=== PATIENT | female | born 1950 | race Caucasian/White ===

== ENCOUNTER 2023-09-08 17:08 | Inpatient (IN) ==
[2023-09-08] MEDS ORDERED: ALBUTEROL 0.083% NEB NEB PRN (17:26)
[2023-09-08 17:46] LABS: ABG O2 HGB 92.7 % (95-100); BEecf 21.3 (-2.0-3.0); COHb 2.6 (0.5-1.5); HCO3 47.7 (21-28); TCO2 50.7 (19-24); sO2 94.3 % (94-98); tHb 7.9 g/dl (11.7-17.4)
[2023-09-08] MEDS: ZOFRAN 4 MG/2 ML IVP PRN (18:34)
[2023-09-08] MEDS: LASIX IVP STA (18:34)
[2023-09-08 18:43] VITALS: BMI 49.8
[2023-09-08] MEDS: DUONEB NEB SCH (18:54)
[2023-09-08] MEDS: MERREM 1 GM/50 ML NACL 1 GM/50 ML BAG IV SCH (20:35)
[2023-09-08 20:45] LABS: ABG O2 HGB 82.3 % (95-100); ABG PH 7.43 (7.35-7.45); BEecf 21.5 (-2.0-3.0); COHb 2.9 (0.5-1.5); HCO3 45.8 (21-28); MetHb 0.5 (0-1.5); TCO2 47.9 (19-24); sO2 85.4 % (94-98); tHb 7.8 g/dl (11.7-17.4)
[2023-09-08] MEDS: FLORASTOR PO SCH (21:01)
[2023-09-08] MEDS: ZYVOX PO SCH (21:01)
--- NOTE | 2023-09-08 21:13 | PCM ---
Date of Service Date Seen by Provider: 09/08/23 Admit Day/Time Admission Date: 09/08/23 Reason for Admission Chief Complaint: CHF W EXACERBATION,ACUTE HYPOXIC RESP FAILURE Hospital Provider Hospital Provider: TYSON BRITO, [facility] [place] Primary Care Physician Primary Care Physician: JOSUE ORTA History of Present Illness History of Present Illness: 73 yo female admitted to swingbed program on 08/31/23 following a left TKA revision completed by Dr. Mock at [facility] on 08/25. Today, patient was complaining of significant pain on ambulation to the left leg. Area at top of incision draining yellow/bloody tinged fluid, red area to the lateral side in the middle of the incision, and left lower leg has continued to become more erythematous. CT scan obtained of area and showed seroma vs hematoma. Patient also became dizzy/lightheaded upon ambulating with nursing staff to [facility] and fell sitting down onto a trashcan. No injuries sustained at that time, but patient was found to be somewhat confused and oxygen sat was in the 80s. Once sitting, O2 sat only recovered to 85-86%. O2 was increased from 4L to 6L within minimal improvement to 90%. Patient was lethargic at this time. ABG was obtained and showed PCO2 of 97. Patient was then placed on BiPAP. Patient had similar episode at [facility] and refused to wear BIPAP/CPAP and refused sleep study. Chest x-ray also obtained and revealed pleural effusions and vascular congestion present. Patient has not had a fever or other symptoms. Spoke extensively with Dr. Johnson Mock, orthopedic that performed her surgery, regarding the patient. Recommended specific wound care as discussed in plan below and recommended Merrem 1G to cover cellulitis and any other gram positive organisms that may be causing the issue with the incision site. Reported that drainage is likely due to fat necrosis and he will come see patient to place jemima to the area that is draining on Wednesday if needed. Hold PT/OT until further notice at this time. [facility] Medical History Lipoma of skin of abdomen D17.1 - Benign lipomatous neoplasm of skin and subcutaneous tissue of trunk (ICD-10) Lipoma of back D17.1 - Benign lipomatous neoplasm of skin and subcutaneous tissue of trunk (ICD-10) Sleep apnea G47.30 - Sleep apnea, unspecified (ICD-10) Hypertension I10 - Essential (primary) hypertension (ICD-10) History of home oxygen therapy Z99.81 - Dependence on supplemental oxygen (ICD-10) Diabetes mellitus E11.9 - Type 2 diabetes mellitus without complications (ICD-10) CHF (congestive heart failure) I50.9 - Heart failure, unspecified (ICD-10) Asthma J45.909 - Unspecified asthma, uncomplicated (ICD-10) Surgical History S/P removal of left ovary Z90.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, unilateral (ICD-10) Joint replaced explant and spacer d/t infection on 03/26/2021 Z96.60 - Presence of unspecified orthopedic joint implant (ICD-10) History of carpal tunnel release Z98.890 - Other specified postprocedural states (ICD-10) Social History Smoking and tobacco status: Former smoker Alcohol intake: never Allergies Allergies Allergy/AdvReac Type Severity Reaction Status Date / Time clindamycin AdvReac Verified 08/31/23 17:04 hydrocodone AdvReac Verified 08/31/23 17:04 Penicillins AdvReac Verified 08/31/23 17:04 Tetanus Toxoid AdvReac Uncoded 08/31/23 17:04 Vancomycin AdvReac Uncoded 08/31/23 17:04 Current Medications Home Medications amiodarone 200 mg tablet 200 mg PO DAILY 08/31/23 [History Confirmed 09/08/23 Last Taken 09/08/23] ascorbic acid (vitamin C) 500 mg tablet,extended release (C Complex) 500 mg PO DAILY 08/31/23 [History Confirmed 09/08/23 Last Taken 09/08/23] bumetanide 1 mg tablet 1 mg PO DAILY 08/31/23 [History Confirmed 09/08/23 Last Taken 09/08/23] cholecalciferol (vitamin D3) 125 mcg (5,000 unit) tablet (Vitamin D3) 125 mcg PO DAILY 08/31/23 [History Confirmed 09/08/23 Last Taken 09/08/23] fexofenadine 180 mg tablet (Arlette Allergy) 180 mg PO DAILY 08/31/23 [History Confirmed 09/08/23 Last Taken 09/08/23] gabapentin 300 mg capsule 300 mg PO TID 08/31/23 [History Confirmed 09/08/23 Last Taken 09/08/23] glimepiride 1 mg tablet 1 mg PO QAM 08/31/23 [History Confirmed 09/08/23 Last Taken 09/08/23] linezolid 600 mg tablet (Zyvox) 600 mg PO BID 08/31/23 [History Confirmed 09/08/23 Last Taken 09/08/23] lovastatin 20 mg tablet 20 mg PO QPM 08/31/23 [History Confirmed 09/08/23 Last Taken 09/08/23] magnesium oxide 400 mg PO BID 08/31/23 [History Confirmed 09/08/23 Last Taken 09/08/23] ondansetron 8 mg disintegrating tablet 4 mg PO Q8H PRN nausea and vomiting 08/31/23 [History Confirmed 09/08/23 Last Taken 09/08/23] oxybutynin chloride 5 mg tablet 5 mg PO TID 08/31/23 [History Confirmed 09/08/23 Last Taken 09/08/23] oxycodone 10 mg tablet 10 mg PO Q4H PRN pain 08/31/23 [History Confirmed 09/08/23 Last Taken 09/08/23] pantoprazole 40 mg tablet,delayed release 40 mg PO QAM 08/31/23 [History Confirmed 09/08/23 Last Taken 09/08/23] rivaroxaban 10 mg tablet (Xarelto) 10 mg PO DAILY 08/31/23 [History Confirmed 09/08/23 Last Taken 09/08/23] triamcinolone acetonide 55 mcg nasal spray aerosol (Nasacort) 2 spray intranasal DAILY 08/31/23 [History Confirmed 09/08/23 Last Taken 09/08/23] Home Acetaminophen (Acetaminophen 325 Mg Tablet) 650 mg PO Q4H PRN PRN Reason: Mild Pain Albuterol Sulfate (Albuterol Sulfate 0.083% Vial.Neb) 2.5 mg NEB RTQ4H PRN PRN Reason: Wheezing Albuterol/Ipratropium (Ipratropium/Albuterol Vial.Neb) 3 ml NEB RTQ4H MANI Last Admin: 09/09/23 09:58 Dose: 3 ml Amiodarone HCl (Amiodarone Hcl 200 Mg Tablet) 200 mg PO DAILY [facility] Last Admin: 09/09/23 08:41 Dose: 200 mg Apixaban (Apixaban 5 Mg Tab) 5 mg PO BID [facility] Last Admin: 09/09/23 09:48 Dose: 5 mg Ascorbic Acid (Ascorbic Acid 500 Mg Tablet) 500 mg PO DAILY [facility] Last Admin: 09/09/23 08:43 Dose: 500 mg Cholecalciferol (Cholecalciferol (Vitamin D3) 1,000 Unit (25 Mcg) Tablet) 5,000 unit PO DAILY [facility] Last Admin: 09/09/23 08:53 Dose: 5,000 unit Furosemide (Furosemide Inj 40 Mg/4 Ml Vial) 40 mg IVP Q8H [facility] Last Admin: 09/09/23 08:55 Dose: 40 mg Gabapentin (Gabapentin 300 Mg Capsule) 300 mg PO TID [facility] Last Admin: 09/09/23 08:44 Dose: 300 mg Meropenem/Sodium Chloride (Merrem 1 Gm/50 Ml Nacl) 1 gm in 50 mls @ 100 mls/hr IV Q8HR [facility] Stop: 09/11/23 18:59 Insulin Human Regular (Insulin Regular, Human 100 Unit/Ml (10ml) Vial) 0 unit SUBCUT PRN PRN; Protocol PRN Reason: Hyperglycemia Linezolid (Linezolid 600 Mg Tablet) 600 mg PO BID [facility] Stop: 09/11/23 20:59 Last Admin: 09/09/23 08:40 Dose: 600 mg Loratadine (Loratadine 10 Mg Tablet) 10 mg PO DAILY [facility] Last Admin: 09/09/23 08:45 Dose: Not Given Lorazepam (Lorazepam Inj 2 Mg/Ml Vial) 1 mg IVP Q4H PRN PRN Reason: Agitation Last Admin: 09/08/23 22:00 Dose: 1 mg Lovastatin (Lovastatin 20 Mg Tablet) 20 mg PO QPM [facility] Magnesium Oxide (Magnesium Oxide 400 Mg Tablet) 400 mg PO BID [facility] Last Admin: 09/09/23 08:40 Dose: 400 mg Ondansetron HCl (Ondansetron Hcl/Pf 4 Mg/2 Ml Sdv) 4 mg IVP Q6H PRN PRN Reason: Nausea / Vomiting Last Admin: 09/08/23 18:34 Dose: 4 mg Oxybutynin Chloride (Oxybutynin Chloride 5 Mg Tablet) 5 mg PO TID [facility] Last Admin: 09/09/23 08:43 Dose: 5 mg Oxycodone HCl (Oxycodone Hcl 5 Mg Tablet) 10 mg PO Q4H PRN PRN Reason: Pain Last Admin: 09/09/23 08:51 Dose: 10 mg Pantoprazole Sodium (Pantoprazole Sodium 40 Mg Tablet.Dr) 40 mg PO QAM [facility] Last Admin: 09/09/23 08:45 Dose: 40 mg Saccharomyces Boulardii (Saccharomyces Boulardii 250 Mg Capsule) 250 mg PO BID [facility] Last Admin: 09/09/23 08:42 Dose: 250 mg Sodium Chloride (0.9% Sodium Chloride 10 Ml Disp.Syrin) 1 syr IVF Q8HR [facility] Last Admin: 09/09/23 04:58 Dose: 1 syr Discontinued Medications Furosemide (Furosemide Inj 40 Mg/4 Ml Vial) 40 mg IVP ONCE STA Stop: 09/08/23 17:27 Last Admin: 09/08/23 18:34 Dose: 40 mg Meropenem/Sodium Chloride (Merrem 1 Gm/50 Ml Nacl) 1 gm in 50 mls @ 100 mls/hr IV Q8H [facility] Stop: 09/11/23 18:59 Last Admin: 09/09/23 04:58 Dose: 100 mls/hr Non-Formulary Medication (Fexofenadine [Arlette Allergy]) 180 mg PO DAILY [facility] Rivaroxaban (Rivaroxaban 10 Mg Tablet) 10 mg PO DAILY [facility] Opioid Naive vs. Tolerant Does Patient Take Opioids?: Yes Is Patient Opioid Naive?: No What is Opioid Naive?: *Opioid Naive implies the patient is not already taking opioids or not chronically receiving opioids on a daily basis. *PRN dosing is not "usually" associated with tolerance. *Patients are at higher risk of over-sedation and aspiration. Is Patient Opioid Tolerant?: No What is Opioid Tolerant?: *Opioid Tolerance implies less than the expected response to an opioid. *Acquired tolerance is defined by the patient taking 60mg of oral morphine daily (or equianalgesic dose of another opioid) for 1 week or more. *Often associated with chronic pain. *May take more than usual dose to achieve desired pain control. Review of Systems Constitutional: Reports No symptoms Head: Reports Normocephalic Eyes: Reports No symptoms Ears: Reports No symptoms Nose: Reports No symptoms Mouth: Reports No symptoms Throat: Reports No symptoms Cardiovascular: Reports Edema Respiratory: Reports Shortness of air Gastrointestinal: Reports Nausea Genitourinary: Reports No Symptoms Dermatologic: Reports Skin Changes (redness to left lower leg ) Endocrine: Reports No symptoms Hematology: Reports No symptoms Immunology: Reports No symptoms Neurological: Reports No symptoms Psychiatric: Reports No symptoms Physical examination Most Recent Vital Signs: Most Recent Vital Signs Temperature 98 F 09/08/23 18:00 Temperature Source Temporal Artery Scan 09/08/23 18:00 Pulse Rate 78 09/08/23 18:00 Respiratory Rate 17 09/08/23 18:00 Blood Pressure 130/89 09/08/23 18:00 Blood Pressure Mean 102 09/08/23 18:00 Blood Pressure Left Arm 114/56 09/08/23 17:15 Blood Pressure Location Left Arm 09/08/23 18:00 Blood Pressure Position Sitting 09/08/23 18:00 O2 Sat by Pulse Oximetry 98 09/08/23 20:54 Oxygen Delivery Method Bi-pap 09/08/23 18:46 Fraction of Inspired Oxygen (FIO2) 32 09/08/23 20:54 Height 5 ft 7 in 09/08/23 17:15 Weight 318 lb 09/08/23 17:15 Appearance: Positive Obese Skin: Positive Warm, Erythema (L lower extremity) and Other (Vertical incision to L knee, erythema and swelling mediolateral to site, drainage present superior to erythematous area that is serosanguineous) HEENT: Positive Normocephalic and PERRLA Neck: Positive Supple and Midline Trachea Chest/Lungs: Positive Symmetrical With Equal Breath Sounds and Other (crackles to bilateral lung bases) Heart: Positive RRR and Pulses Normal GI/: Positive Soft, Nontender, Bowel Sounds Normal and No Distention Musculoskeletal: Positive Not Examined Extremities: Positive Edema (+4 pitting edema to LLE and +2-3 pitting edema to RLE), Intact Peripheral Pulses and Stable Joints Without Laxity Neurological: Positive Sensation Intact, Motor intact, Reflexes Intact, Disorinted and Other (lethargic) Labs This Visit Labs This Visit: Labs This Visit 09/08/23 09/08/23 17:36 20:30 Puncture Site [employer] Excess 21.3 H 21.5 H O2 Saturation 94.3 85.4 L ABG pH 7.30 L 7.43 ABG pCO2 97.0 H 69.0 H ABG pO2 79.0 L 49.0 L* ABG HCO3 47.7 H 45.8 H ABG Total CO2 50.7 H 47.9 H Luisito Test Pos Pos Hemoglobin 1.0 0.5 Oxyhemoglobin 92.7 L 82.3 L Carboxyhemoglobin 2.6 H 2.9 H Total Hemoglobin 7.9 L 7.8 L O2 Delivery Device Cannula Bipap Oxygen Liter Flow 4.50 FiO2 % 28.0 Imaging Imaging: EXAM: CHEST RADIOGRAPH TECHNIQUE: Single frontal chest radiograph. HISTORY: Shortness of breath. COMPARISON: 08/27/2023 FINDINGS: No pulmonary infiltrate is identified. Trace left pleural effusion. No visible pneumothorax. Stable cardiomegaly with interval improvement in the pulmonary venous congestion. Equivocal interstitial edema. No acute displaced rib fractures are identified. IMPRESSION: 1. Cardiomegaly, pulmonary venous congestion, and trace left pleural effusion with equivocal interstitial edema. Review Statement Review Statement: I have independently reviewed and interpreted the labs/EKGs/imaging that were ordered by the ER provider. I have reviewed all outside records that are available currently in our EMR including imaging/notes/labs from previous visits. Plan Plan: 1. Acute Hypercapnic Respiratory Failure in setting of NAVEED and CHF exacerbation - patient refused cpap/sleep study at [facility], will discuss risks/benefits with patient once medically stable, serial ABGs, wean off BIPAP as tolerated, nebs 2. Acute Hypercapnic Encephalopathy - plan as above, avoid any additional neurologically altering agents if able 3. CHF Exacerbation - unknown type, last echo done 09/2021 with EF of 66%, follows with [facility]; lasix 40 mg Q8H, I&O, daily weight, 1800 mL fluid restriction 4. Cellulitis to LLE - treating with Merrem 1G Q8H, on zyvox PO for left knee revision - continue 5. Post-op anemia - 7.5 currently, VSS, transfuse when <7 6. 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 Mock on 08/25. Following with Dr. Li for ID. Initially on zyvox, transitioned to doxy per Dr. Li. Cellulitis and concerning areas present after switch. Back on zyvox until follow-up with [facility]. wound care as follows per Dr. Johnson Mock: alcohol and betadine to draining area TID with 4x4 gauze with adherent dressing, if area still draining Dr. Mock will staple area on Wednesday. oxycodone for pain 7. Weakness and debility secondary to left TKA revision - holding PT/OT at this time due to above 8. Diabetes Mellitus, type 2 - accuchecks qid with ssi, holding oral medications, ADA diet 9. PAF - continue home medications DVT Prophylaxis: Eliquis Time Spent: Greater than 80 minutes spent with patient, 50% of the time spent with this patient was devoted to counseling and coordination of care. [facility] minutes spent discussing advance care planning. Disposition: Admit to: Med/Surg Inpatient Discussed Plan of Care with Dr. Ysabel Mock. Medications Medication Orders: Medications Ordered Category Date Time Status 0.9 % Sodium Chloride [Saline Flush] Meds 09/08/23 21:00 Ordered 1 syr IVF Q8HR Acetaminophen [Tylenol] Meds 09/08/23 17:39 Active 650 mg PO Q4H PRN Albuterol Sulfate 0.083% Neb [Albuterol 0.083% Neb] Meds 09/08/23 17:26 Active 2.5 mg NEB RTQ4H PRN Amiodarone HCl [Cordarone] Meds 09/09/23 09:00 Ordered 200 mg PO DAILY Cholecalciferol (Vitamin D3) [Vitamin D] Meds 09/09/23 09:00 Ordered 125 mcg PO DAILY Furosemide [Lasix] Meds 09/09/23 01:30 Active 40 mg IVP Q8H Gabapentin [Neurontin] Meds 09/09/23 09:00 Ordered 300 mg PO TID Insulin Regular, Human [Humulin R] Meds 09/08/23 17:41 Active See Protocol SUBCUT PRN PRN Ipratropium/Albuterol Neb [Duoneb] Meds 09/08/23 18:00 Active 3 ml NEB RTQ4H Linezolid [Zyvox] Meds 09/08/23 21:00 Active 600 mg PO BID Lorazepam [Ativan] Meds 09/08/23 18:31 Active 1 mg IVP Q4H PRN Lovastatin [Mevacor] Meds 09/09/23 17:00 Ordered 20 mg PO QPM Meropenem 1Gm/NaCl Premix [Merrem 1 gm/50 ml NaCl] Meds 09/08/23 19:00 Active 1 gm in 50 ml IV Q8H Ondansetron HCl/Pf [Zofran 4 mg/2 ml] Meds 09/08/23 17:55 Active 4 mg IVP Q6H PRN Oxybutynin Chloride [Ditropan] Meds 09/09/23 09:00 Ordered 5 mg PO TID Oxycodone HCl [Oxycodone] Meds 09/08/23 21:11 Ordered 10 mg PO Q4H PRN Pantoprazole Sodium [Protonix] Meds 09/09/23 09:00 Ordered 40 mg PO QAM Rivaroxaban [Xarelto] Meds 09/09/23 09:00 Ordered 10 mg PO DAILY Saccharomyces Boulardii [Florastor] Meds 09/08/23 21:00 Active 250 mg PO BID ascorbic acid (vitamin C) [C Complex] Meds 09/09/23 09:00 Ordered 500 mg PO DAILY fexofenadine [Arlette Allergy] Meds 09/09/23 09:00 Ordered 180 mg PO DAILY magnesium oxide Meds 09/09/23 09:00 Ordered 400 mg PO BID
[2023-09-08] MEDS: ATIVAN IVP PRN (22:00)
[2023-09-09] MEDS: LASIX IVP SCH (01:39)
[2023-09-09] MEDS: OXYCODONE PO PRN (01:39)
[2023-09-09 05:41] LABS: BASOPHILS % (AUTO) 0.5 % (0.0-3.0); EOSINOPHILS # (AUTO) 0.4 K/ul (0.0-0.7); EOSINOPHILS % (AUTO) 5.2 % (0.0-7.0); HEMATOCRIT 25.1 % (37.0-47.0); HEMOGLOBIN 6.9 g/dl (12.0-16.0); IMMATURE GRANULOCYTE % (AUTO) 0.5 % (0.0-5.0); LYMPHOCYTES # (AUTO) 1.3 K/uL (0.60-3.4); LYMPHOCYTES % (AUTO) 15.7 (10.0-50.0); MEAN CORPUSCULAR HEMOGLOBIN 23.2 pg (27.0-31.0); MEAN CORPUSCULAR HGB CONC 27.5 (31.8-35.4); MEAN CORPUSCULAR VOLUME 84.2 fl (81.0-99.0); MONOCYTES # (AUTO) 1.2 K/uL (0.4-2.0); MONOCYTES % (AUTO) 14.7 (0-10); NEUTROPHILS # (AUTO) 5.3 K/ul (2.0-6.9); NEUTROPHILS % (AUTO) 63.4 % (42.2-75.2); PLATELET COUNT 181 10^3/uL (140-440); RDW COEFFICIENT OF VARIATION 22.2 % (11.6-14.8); RED BLOOD COUNT 2.98 10^6/ul (4.20-5.40); WHITE BLOOD COUNT 8.39 K/ul (4.6-10.2)
[2023-09-09 05:57] LABS: ALANINE AMINOTRANSFERASE 18.6 U/L (0-35); ALBUMIN 3.04 g/dL (3.5-5.0); ALKALINE PHOSPHATASE 81.2 U/L (53-141); ASPARTATE AMINO TRANSFERASE 37.3 U/L (14-36); BILIRUBIN,TOTAL 0.69 mg/dL (0.2-1.3); BLOOD UREA NITROGEN 7.7 mg/dL (7-17); CALCIUM 8.75 mg/dL (8.4-10.2); CHLORIDE 91.8 mmol/L (98-107); CREATININE 0.83 mg/dL (0.60-1.30); GLUCOSE 60.9 mg/dL (74-106); POTASSIUM 3.46 mmol/L (3.5-5.1); SODIUM 133.8 mmol/L (134.5-145); TOTAL PROTEIN 5.76 g/dL (6.3-8.2)
[2023-09-09 06:03] LABS: CARBON DIOXIDE 37.7 mmol/L (22-30.0)
[2023-09-09 06:05] LABS: ANISOCYTOSIS 2+ (NOT PRESENT); HYPOCHROMASIA 2+ (NOT PRESENT); MICROCYTOSIS 1+ (NOT PRESENT)
[2023-09-09 06:35] LABS: FI02 7.5 %
[2023-09-09 06:36] LABS: ABG PH 7.49 (7.35-7.45)
[2023-09-09 06:37] LABS: ABG O2 HGB 95.5 % (95-100); BEecf 23.9 (-2.0-3.0); HCO3 47.2 (21-28); MetHb 0.5 (0-1.5); TCO2 49.1 (19-24); sO2 97.5 % (94-98); tHb 7.5 g/dl (11.7-17.4)
[2023-09-09] MEDS: MAG-OX PO SCH (08:40)
[2023-09-09] MEDS: CORDARONE PO SCH (08:41)
[2023-09-09] MEDS: DITROPAN PO SCH (08:43)
[2023-09-09] MEDS: VITAMIN C PO SCH (08:43)
[2023-09-09] MEDS: NEURONTIN PO SCH (08:44)
[2023-09-09] MEDS: PROTONIX PO SCH (08:45)
[2023-09-09] MEDS: CLARITIN PO SCH (08:45)
[2023-09-09] MEDS: VITAMIN D PO SCH (08:53)
[2023-09-09] MEDS: XARELTO PO SCH (09:15)
[2023-09-09] MEDS ORDERED: LASIX IVP ONE (09:20)
[2023-09-09] MEDS: ELIQUIS PO SCH (09:48)
--- NOTE | 2023-09-09 11:21 | PCM.PROG ---
Date/Time Seen Date Seen by Provider: 09/09/23 Time Seen by Provider: 08:45 Provider [facility] Chief Complaint Chief Complaint: CHF W EXACERBATION,ACUTE HYPOXIC RESP FAILURE Subjective Subjective: Wore bipap overnight. CO2 improved to 60s. Baseline at [facility] appeared in 70s and refused CPAP there. Discussed extensively with patient that if she wishes to remain a full code it is necessary for her to wear CPAP. Risks/benefits explained and is agreeable to wear when she is sleeping. Feeling some better today. Objective Appearance: Positive No Apparent Distress, Alert and Oriented x3 and Obese Chest/Lungs: Positive Symmetrical With Equal Breath Sounds and Other (mild crackles to bilateral lung bases but improved) Heart: Positive RRR and Pulses Normal GI/: Positive Soft, Nontender and Bowel Sounds Normal Musculoskeletal: Positive Not Examined Neurological: Positive Sensation Intact, Motor intact, Reflexes Intact, Alert an d Oriented Additional Findings: Vertical incision to L knee, erythema and swelling mediolateral to site, drainage present superior to erythematous area that is serosanguineous Improving erythema to LLE Improved edema generalized to BLE, +4 to LLE and +2-3 to RLE Vital Signs Vital Signs: Vital Signs: Last 24 Hours 09/08/23 17:15 09/08/23 17:15 09/08/23 18:00 Temperature 98.0 F 98 F Temperature Source Temporal Artery Scan Temporal Artery Scan Pulse Rate 74 78 Respiratory Rate 16 17 Blood Pressure 130/89 Blood Pressure Mean 102 Blood Pressure Left Arm 114/56 Blood Pressure Location Left Arm Blood Pressure Position Sitting Sitting O2 Sat by Pulse Oximetry 96 95 Oxygen Delivery Method Bi-pap Bi-pap Bi-pap Oxygen Flow Rate Fraction of Inspired Oxygen (FIO2) Height 5 ft 7 in Weight 318 lb 09/08/23 18:46 09/08/23 18:46 09/08/23 20:00 Temperature Temperature Source Pulse Rate Respiratory Rate Blood Pressure Blood Pressure Mean Blood Pressure Left Arm Blood Pressure Location Blood Pressure Position O2 Sat by Pulse Oximetry 96 96 Oxygen Delivery Method Bi-pap Bi-pap Oxygen Flow Rate Fraction of Inspired Oxygen (FIO2) 28 28 Height Weight 09/08/23 20:00 09/08/23 20:54 09/08/23 21:46 Temperature 97.3 F L Temperature Source Temporal Artery Scan Pulse Rate 72 Respiratory Rate 13 Blood Pressure 113/65 Blood Pressure Mean 81 Blood Pressure Left Arm Blood Pressure Location Right Arm Blood Pressure Position Sitting O2 Sat by Pulse Oximetry 96 98 90 L Oxygen Delivery Method Bi-pap Bi-pap Oxygen Flow Rate Fraction of Inspired Oxygen (FIO2) 28 32 Height Weight 09/09/23 01:21 09/09/23 01:50 09/09/23 04:45 Temperature 98.5 F Temperature Source Temporal Artery Scan Pulse Rate 72 Respiratory Rate 24 H Blood Pressure 123/62 Blood Pressure Mean 82 Blood Pressure Left Arm Blood Pressure Location Left Arm Blood Pressure Position Sitting O2 Sat by Pulse Oximetry 96 97 97 Oxygen Delivery Method Bi-pap Oxygen Flow Rate Fraction of Inspired Oxygen (FIO2) 50 50 Height Weight 09/09/23 04:48 09/09/23 05:30 09/09/23 08:04 Temperature 98.3 F Temperature Source Temporal Artery Scan Pulse Rate 71 Respiratory Rate 12 Blood Pressure 112/48 L Blood Pressure Mean 69 Blood Pressure Left Arm Blood Pressure Location Right Arm Blood Pressure Position Sitting O2 Sat by Pulse Oximetry 97 97 96 Oxygen Delivery Method Bi-pap Bi-pap Oxygen Flow Rate Fraction of Inspired Oxygen (FIO2) 50 50 Height Weight 09/09/23 08:04 09/09/23 09:37 09/09/23 10:00 Temperature 97.9 F Temperature Source Temporal Artery Scan Pulse Rate 77 Respiratory Rate 19 Blood Pressure 126/102 H Blood Pressure Mean 110 Blood Pressure Left Arm Blood Pressure Location Right Radial Artery Blood Pressure Position Sitting O2 Sat by Pulse Oximetry 97 98 Oxygen Delivery Method Nasal Cannula Nasal Cannula Nasal Cannula Oxygen Flow Rate 5 5 Fraction of Inspired Oxygen (FIO2) Height Weight Lab Results Lab Results: Lab Results: Last 24 Hours 09/09/23 09/09/23 09/09/23 09:14 05:20 05:10 WBC 8.39 RBC 2.98 L Hgb 6.9 L* Hct 25.1 L MCV 84.2 MCH 23.2 L MCHC 27.5 L RDW Coeff of Iman 22.2 H Plt Count 181 Immature Gran % (Auto) 0.5 Neut % (Auto) 63.4 Lymph % (Auto) 15.7 [place] % (Auto) 14.7 H Eos % (Auto) 5.2 Baso % (Auto) 0.5 Neut # (Auto) 5.3 Lymph # (Auto) 1.3 [place] # (Auto) 1.2 Eos # (Auto) 0.4 Baso # (Auto) 0.0 Immature Gran # (Auto) 0.0 Hypochromasia 2+ Anisocytosis 2+ Microcytosis 1+ Puncture Site [employer] Excess 23.9 H O2 Saturation 97.5 ABG pH 7.49 H ABG pCO2 62.0 H ABG pO2 89.0 ABG HCO3 47.2 H ABG Total CO2 49.1 H [place] Test + Hemoglobin 0.5 Oxyhemoglobin 95.5 Carboxyhemoglobin 2.0 H Total Hemoglobin 7.5 L O2 Delivery Device Bipap 18/6 Oxygen Liter Flow FiO2 % 7.5 Sodium 133.8 L Potassium 3.46 L Chloride 91.8 L Carbon Dioxide 37.7 H Anion Gap 7.76 BUN 7.7 Creatinine 0.83 Estimated GFR (MDRD) 67.00 BUN/Creatinine Ratio 9.27 Glucose 60.9 L D Calcium 8.75 Total Bilirubin 0.69 AST 37.3 H ALT 18.6 Alkaline Phosphatase 81.2 Total Protein 5.76 L Albumin 3.04 L Globulin 2.72 Albumin/Globulin Ratio 1.11 Blood Type O POSITIVE O POSITIVE Antibody Screen Negative Crossmatch (AHG) See Detail 09/08/23 09/08/23 20:30 17:36 WBC RBC Hgb Hct MCV MCH MCHC RDW Coeff of [place] Plt Count Immature Gran % (Auto) Neut % (Auto) Lymph % (Auto) [place] % (Auto) Eos % (Auto) Baso % (Auto) Neut # (Auto) Lymph # (Auto) [place] # (Auto) Eos # (Auto) Baso # (Auto) Immature Gran # (Auto) Hypochromasia Anisocytosis Microcytosis Puncture Site [employer] Excess 21.5 H 21.3 H O2 Saturation 85.4 L 94.3 ABG pH 7.43 7.30 L ABG pCO2 69.0 H 97.0 H ABG pO2 49.0 L* 79.0 L ABG HCO3 45.8 H 47.7 H ABG Total CO2 47.9 H 50.7 H [place] Test Pos Pos Hemoglobin 0.5 1.0 Oxyhemoglobin 82.3 L 92.7 L Carboxyhemoglobin 2.9 H 2.6 H Total Hemoglobin 7.8 L 7.9 L O2 Delivery Device Bipap Cannula Oxygen Liter Flow 4.50 FiO2 % 28.0 Sodium Potassium Chloride Carbon Dioxide Anion Gap BUN Creatinine Estimated GFR (MDRD) BUN/Creatinine Ratio Glucose Calcium Total Bilirubin AST ALT Alkaline Phosphatase Total Protein Albumin Globulin Albumin/Globulin Ratio Blood Type Antibody Screen Crossmatch (AHG) Additional Comments Additional Comments: I have independently reviewed and interpreted the labs/EKGs/imaging ordered during this hospital stay. I have reviewed outside records that are available in our EMR that pertain to medical stay including imaging/notes/labs from previous visits. Active Medications Active Medications: Medications Generic Name Dose Route Start Last Admin Trade Name Freq PRN Reason Stop Dose Admin Acetaminophen 650 mg 09/08/23 17:39 Acetaminophen 325 Mg Tablet PO Q4H PRN Mild Pain Albuterol Sulfate 2.5 mg 09/08/23 17:26 Albuterol Sulfate 0.083% Vial.Neb NEB RTQ4H PRN Wheezing Albuterol/Ipratropium 3 ml 09/08/23 18:00 09/09/23 09:58 Ipratropium/Albuterol Vial.Neb NEB 3 ml RTQ4H MANI Administration Amiodarone HCl 200 mg 09/09/23 09:00 09/09/23 08:41 Amiodarone Hcl 200 Mg Tablet PO 200 mg DAILY MANI Administration Apixaban 5 mg 09/09/23 09:25 09/09/23 09:48 Apixaban 5 Mg Tab PO 5 mg BID MANI Administration Ascorbic Acid 500 mg 09/09/23 09:00 09/09/23 08:43 Ascorbic Acid 500 Mg Tablet PO 500 mg DAILY MANI Administration Cholecalciferol 5,000 unit 09/09/23 09:00 09/09/23 08:53 Cholecalciferol (Vitamin D3) 1,000 Unit (25 Mcg) Tablet PO 5,000 unit DAILY MANI Administration Furosemide 40 mg 09/09/23 01:30 09/09/23 08:55 Furosemide Inj 40 Mg/4 Ml Vial IVP 40 mg Q8H MANI Administration Gabapentin 300 mg 09/09/23 09:00 09/09/23 08:44 Gabapentin 300 Mg Capsule PO 300 mg TID MANI Administration Meropenem/Sodium Chloride 1 gm in 50 mls @ 100 mls/hr 09/09/23 13:00 Merrem 1 Gm/50 Ml Nacl IV 09/11/23 18:59 Q8HR MANI Insulin Human Regular 0 unit 09/08/23 17:41 Insulin Regular, Human 100 Unit/Ml (10ml) Vial SUBCUT PRN PRN Hyperglycemia Protocol Linezolid 600 mg 09/08/23 21:00 09/09/23 08:40 Linezolid 600 Mg Tablet PO 09/11/23 20:59 600 mg BID MANI Administration Loratadine 10 mg 09/09/23 09:00 09/09/23 08:45 Loratadine 10 Mg Tablet PO Not Given DAILY MANI Lorazepam 1 mg 09/08/23 18:31 09/08/23 22:00 Lorazepam Inj 2 Mg/Ml Vial IVP 1 mg Q4H PRN Administration Agitation Lovastatin 20 mg 09/09/23 17:00 Lovastatin 20 Mg Tablet PO QPM MANI Magnesium Oxide 400 mg 09/09/23 09:00 09/09/23 08:40 Magnesium Oxide 400 Mg Tablet PO 400 mg BID MANI Administration Ondansetron HCl 4 mg 09/08/23 17:55 09/08/23 18:34 Ondansetron Hcl/Pf 4 Mg/2 Ml Sdv IVP 4 mg Q6H PRN Administration Nausea / Vomiting Oxybutynin Chloride 5 mg 09/09/23 09:00 09/09/23 08:43 Oxybutynin Chloride 5 Mg Tablet PO 5 mg TID MANI Administration Oxycodone HCl 10 mg 09/08/23 21:11 09/09/23 08:51 Oxycodone Hcl 5 Mg Tablet PO 10 mg Q4H PRN Administration Pain Pantoprazole Sodium 40 mg 09/09/23 09:00 09/09/23 08:45 Pantoprazole Sodium 40 Mg Tablet. PO 40 mg QAM MANI Administration Saccharomyces Boulardii 250 mg 09/08/23 21:00 09/09/23 08:42 Saccharomyces Boulardii 250 Mg Capsule PO 250 mg BID MANI Administration Sodium Chloride 1 syr 09/08/23 21:00 09/09/23 04:58 0.9% Sodium Chloride 10 Ml Disp.Syrin IVF 1 syr Q8HR MANI Administration Plan Plan: 1. Acute Hypercapnic Respiratory Failure in setting of NAVEED and CHF exacerbation - Resolved, patient agreeable to wear CPAP at night, will send orders for sleep study 2. Acute Hypercapnic Encephalopathy - Resolved, avoid any additional neurologically altering agents if able 3. CHF Exacerbation - unknown type, last echo done 09/2021 with EF of 66%, follows with [facility]; lasix 40 mg Q8H, I&O, daily weight, 1800 mL fluid restriction, echo today 4. Cellulitis to LLE - treating with Merrem 1G Q8H, on zyvox PO for left knee revision - continue 5. Post-op anemia - 7.5 currently, VSS, transfuse when <7 6. 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 Mock on 08/25. Following with Dr. Li for ID. Initially on zyvox, transitioned to doxy per Dr. Li. Cellulitis and concerning areas present after switch. Back on zyvox until follow-up with [facility]. wound care as follows per Dr. Johnson Mock: alcohol and betadine to draining area TID with 4x4 gauze with adherent dressing, if area still draining Dr. Mock will staple area on Wednesday. oxycodone for pain, culture wound 7. Weakness and debility secondary to left TKA revision - holding PT/OT at this time due to above 8. Diabetes Mellitus, type 2 - accuchecks qid with ssi, holding oral medications, ADA diet 9. PAF - continue home medications DVT Prophylaxis: Eliquis Review Statement Review Statement: I have personally discussed and reviewed the patient's visit/currently labs/imaging/decision making with Dr. Mock, my supervising attending. Greater that 50 minutes spent with patient, 50% of the time spent with this patient was devoted to counseling and coordination of care.
--- NOTE | 2023-09-09 13:07 | ECHO2D ---
Date of Exam: 09/09/2023 Ordering Physician: -NICANOR DIAZ NP; PCP-DR. ORTA Room #: SCU 2 Reason for Echo: SWELLING, SHORTNESS OF BREATH, CONGESTIVE HEART FAILURE M-Mode Normal Adult Results LV Dimensions Normal Adult Results AoV Opening excursions >1.6 >1.6 LVEDD-base- 3.5-5.8 5.7 Ao root dimensions 2.0-3.7 3.4 LVESD-base- 3.1-4.6 L. Atrium dimensions 1.9-3.8 5.5 Post. Wall thickness 0.8-1.1 1.3 IV septum (thickness) 0.7-1.2 1.4 Post. Wall excursion 0.72-1.3 NORMAL Septal motion NORMAL Systolic motion R. Ventricular cavity 1.5-2.0 NORMAL LVEF 60% 67% Paradoxical septal wall motion NORMAL 2-D : 2-D M Mode Echocardiogram was performed using apical four chamber and left parasternal long and short axis views. Mitral, tricuspid and aortic valves appear to be normal. Contractility of the left ventricle seems to be normal . LEFT VENTRICLE CAVITY IS BORDERLINE. LEFT ATRIAL CAVITY SIZE IS ENLARGED. Aortic root appears to be normal. There is no pericardial effusion. There is no thrombus noted in the left ventricle or left atrial cavity. DIFFICULT STUDY - PATIENT WAS IN THE CHAIR M-MODE: MV: NORMAL AV: NORMAL TV: NORMAL PV: NORMAL CHAMBER SIZE: ENLARGED LEFT ATRIAL CAVITY, BORDERLINE LEFT VENTRICLE CAVITY. WALL MOTION: NORMAL PERICARDIUM: NORMAL INTERPRETATION: 1. LEFT VENTRICULAR HYPERTROPHY WITH ENLARGED LEFT ATRIAL CAVITY. 2. BORDERLINE LEFT VENTRICLE CAVITY ENLARGEMENT. 3. NORMAL LEFT VENTRICULAR CONTRACTILITY , EJECTION FRACTION > 60%. 4. NO SYSTOLIC/DIASTOLIC DYSFUNCTION. 5. VALVES NORMAL. MTDD
[2023-09-09] MEDS: MERREM 1 GM/50 ML NACL 1 GM/50 ML BAG IV SCH (14:33)
[2023-09-09] MEDS: LASIX IVP STA (16:00)
[2023-09-09] MEDS: HUMULIN R SUBCUT PRN (17:42)
[2023-09-09] MEDS: MEVACOR PO SCH (17:42)
[2023-09-09 20:43] LABS: HEMATOCRIT 31.3 % (37.0-47.0); HEMOGLOBIN 8.8 g/dl (12.0-16.0)
[2023-09-10] MEDS: PROTONIX PO SCH (05:05)
[2023-09-10 05:12] LABS: ABG O2 HGB 86.4 % (95-100); ABG PH 7.47 (7.35-7.45); BEecf 22.2 (-2.0-3.0); COHb 2.1 (0.5-1.5); HCO3 45.9 (21-28); MetHb 1.1 (0-1.5); TCO2 47.8 (19-24); sO2 89.2 % (94-98); tHb 9.1 g/dl (11.7-17.4)
[2023-09-10 05:50] LABS: BASOPHILS # (AUTO) 0.1 K/uL (0-0.2); BASOPHILS % (AUTO) 0.8 % (0.0-3.0); EOSINOPHILS # (AUTO) 0.4 K/ul (0.0-0.7); EOSINOPHILS % (AUTO) 5.8 % (0.0-7.0); HEMATOCRIT 29.4 % (37.0-47.0); HEMOGLOBIN 8.2 g/dl (12.0-16.0); IMMATURE GRANULOCYTE % (AUTO) 0.4 % (0.0-5.0); LYMPHOCYTES # (AUTO) 1.4 K/uL (0.60-3.4); LYMPHOCYTES % (AUTO) 18.2 (10.0-50.0); MEAN CORPUSCULAR HEMOGLOBIN 24.2 pg (27.0-31.0); MEAN CORPUSCULAR HGB CONC 27.9 (31.8-35.4); MEAN CORPUSCULAR VOLUME 86.7 fl (81.0-99.0); MONOCYTES % (AUTO) 13.6 (0-10); NEUTROPHILS # (AUTO) 4.5 K/ul (2.0-6.9); NEUTROPHILS % (AUTO) 61.2 % (42.2-75.2); PLATELET COUNT 177 10^3/uL (140-440); RDW COEFFICIENT OF VARIATION 22.8 % (11.6-14.8); RED BLOOD COUNT 3.39 10^6/ul (4.20-5.40); WHITE BLOOD COUNT 7.41 K/ul (4.6-10.2)
[2023-09-10 06:03] LABS: ALANINE AMINOTRANSFERASE 17.4 U/L (0-35); ALBUMIN 3.03 g/dL (3.5-5.0); ALKALINE PHOSPHATASE 91.9 U/L (53-141); ASPARTATE AMINO TRANSFERASE 33.7 U/L (14-36); BILIRUBIN,TOTAL 0.85 mg/dL (0.2-1.3); BLOOD UREA NITROGEN 8.6 mg/dL (7-17); CALCIUM 8.61 mg/dL (8.4-10.2); CHLORIDE 91.8 mmol/L (98-107); CREATININE 0.87 mg/dL (0.60-1.30); POTASSIUM 3.36 mmol/L (3.5-5.1); SODIUM 133.8 mmol/L (134.5-145); TOTAL PROTEIN 5.83 g/dL (6.3-8.2)
[2023-09-10 06:16] LABS: CARBON DIOXIDE 42.6 mmol/L (22-30.0)
[2023-09-10 06:22] LABS: ANISOCYTOSIS 1+ (NOT PRESENT); HYPOCHROMASIA 1+ (NOT PRESENT)
[2023-09-10] MEDS: K-DUR PO ONE (08:47)
[2023-09-10 10:02] LABS: IRON 28.6 ug/dL (37-170)
[2023-09-10] MEDS: TYLENOL PO PRN (10:59)
--- NOTE | 2023-09-10 11:59 | PCM.PROG ---
Date/Time Seen Date Seen by Provider: 09/10/23 Time Seen by Provider: 08:45 Provider Provider: TYSON BRITO, [facility] Chief Complaint Chief Complaint: CHF W EXACERBATION,ACUTE HYPOXIC RESP FAILURE Subjective Subjective: Slept well. Wore CPAP all night. Feeling better today. More awake. Swelling improving. Objective Appearance: Positive No Apparent Distress, Alert and Oriented x3 and Obese Chest/Lungs: Positive Symmetrical With Equal Breath Sounds and Clear to Auscultation Bilaterally (diminished) Heart: Positive RRR and Pulses Normal GI/: Positive Soft, Nontender, Bowel Sounds Normal and No Distention Musculoskeletal: Positive Not Examined Neurological: Positive Sensation Intact, Motor intact, Reflexes Intact, Alert and Oriented Additional Findings: Vertical incision to L knee, improved erythema and swelling mediolateral to site, scant drainage present superior to erythematous area that is serosanguine ous Improving erythema to LLE Improved edema generalized to BLE, +3-4 to LLE and +2-3 to RLE Vital Signs Vital Signs: Vital Signs: Last 24 Hours 09/09/23 12:38 09/09/23 13:00 09/09/23 13:38 Temperature 98.8 F 98.3 F Temperature Source Pulse Rate 79 75 Respiratory Rate 18 18 Blood Pressure 97/61 104/54 L Blood Pressure Mean 73 70 Blood Pressure Location Blood Pressure Position O2 Sat by Pulse Oximetry Oxygen Delivery Method Oxygen Flow Rate Fraction of Inspired Oxygen (FIO2) Height Weight Telemetry Type Bedside Monitor Telemetry Monitoring Continues Telemetry Heart Rate 80 Telemetry SPO2 96 EKG MO Interval 0.16 EKG QRS Interval 0.09 Telemetry Strip Reading Sinus Rhythm W/ PVCs 09/09/23 13:40 09/09/23 14:00 09/09/23 14:00 Temperature Temperature Source Pulse Rate Respiratory Rate Blood Pressure Blood Pressure Mean Blood Pressure Location Blood Pressure Position O2 Sat by Pulse Oximetry 98 98 Oxygen Delivery Method Bi-pap Oxygen Flow Rate Fraction of Inspired Oxygen (FIO2) 36 36 Height 5 ft 7 in Weight 318 lb Telemetry Type Telemetry Monitoring Telemetry Heart Rate Telemetry SPO2 EKG MO Interval EKG QRS Interval Telemetry Strip Reading 09/09/23 14:27 09/09/23 16:36 09/09/23 16:51 Temperature 98.6 F 97.9 F 98.4 F Temperature Source Pulse Rate 74 68 67 Respiratory Rate 16 14 12 Blood Pressure 112/51 L 97/47 L 100/47 L Blood Pressure Mean 71 63 64 Blood Pressure Location Blood Pressure Position O2 Sat by Pulse Oximetry Oxygen Delivery Method Oxygen Flow Rate Fraction of Inspired Oxygen (FIO2) Height Weight Telemetry Type Telemetry Monitoring Telemetry Heart Rate Telemetry SPO2 EKG MO Interval EKG QRS Interval Telemetry Strip Reading 09/09/23 17:27 09/09/23 17:27 09/09/23 17:51 Temperature 98.4 F Temperature Source Pulse Rate 83 Respiratory Rate 15 Blood Pressure 113/57 L Blood Pressure Mean 75 Blood Pressure Location Blood Pressure Position O2 Sat by Pulse Oximetry 97 Oxygen Delivery Method Nasal Cannula Oxygen Flow Rate 4 Fraction of Inspired Oxygen (FIO2) 36 Height Weight Telemetry Type Telemetry Monitoring Telemetry Heart Rate Telemetry SPO2 EKG MO Interval EKG QRS Interval Telemetry Strip Reading 09/09/23 18:00 09/09/23 18:51 09/09/23 19:00 Temperature 98.4 F 98.5 F Temperature Source Temporal Artery Scan Pulse Rate 81 79 Respiratory Rate 17 18 Blood Pressure 89/65 L 112/51 L Blood Pressure Mean 73 71 Blood Pressure Location Left Arm Blood Pressure Position Sitting O2 Sat by Pulse Oximetry 94 L Oxygen Delivery Method Nasal Cannula Oxygen Flow Rate Fraction of Inspired Oxygen (FIO2) Height Weight Telemetry Type Remote Telemetry Telemetry Monitoring Continues Telemetry Heart Rate 90 Telemetry SPO2 94 EKG MO Interval 0.15 EKG QRS Interval 0.09 Telemetry Strip Reading SR 09/09/23 19:41 09/09/23 20:00 09/09/23 21:54 Temperature 99.2 F Temperature Source Temporal Artery Scan Pulse Rate 78 Respiratory Rate 18 Blood Pressure 93/63 Blood Pressure Mean 73 Blood Pressure Location Right Radial Artery Blood Pressure Position Sitting O2 Sat by Pulse Oximetry 93 L 96 Oxygen Delivery Method Nasal Cannula Nasal Cannula Nasal Cannula Oxygen Flow Rate 4 4 Fraction of Inspired Oxygen (FIO2) Height Weight Telemetry Type Telemetry Monitoring Telemetry Heart Rate Telemetry SPO2 EKG MO Interval EKG QRS Interval Telemetry Strip Reading 09/10/23 01:00 09/10/23 01:19 09/10/23 05:13 Temperature Temperature Source Pulse Rate Respiratory Rate Blood Pressure Blood Pressure Mean Blood Pressure Location Blood Pressure Position O2 Sat by Pulse Oximetry 97 90 L Oxygen Delivery Method Oxygen Flow Rate Fraction of Inspired Oxygen (FIO2) 36 36 Height Weight Telemetry Type Remote Telemetry Telemetry Monitoring Continues Telemetry Heart Rate 77 Telemetry SPO2 99 EKG MO Interval 0.16 EKG QRS Interval 0.08 Telemetry Strip Reading SR 09/10/23 05:14 09/10/23 05:56 09/10/23 07:00 Temperature 97.5 F L Temperature Source Temporal Artery Scan Pulse Rate 72 Respiratory Rate 18 Blood Pressure 95/48 L Blood Pressure Mean 63 Blood Pressure Location Right Radial Artery Blood Pressure Position Sitting O2 Sat by Pulse Oximetry 90 L 90 L Oxygen Delivery Method C-pap Bi-pap Oxygen Flow Rate Fraction of Inspired Oxygen (FIO2) 36 Height Weight Telemetry Type Bedside Monitor Telemetry Monitoring Continues Telemetry Heart Rate 72 Telemetry SPO2 95 EKG MO Interval 0.09 L EKG QRS Interval 0.09 Telemetry Strip Reading Accelerated Junctional 09/10/23 10:00 09/10/23 10:00 Temperature 98.9 F Temperature Source Temporal Artery Scan Pulse Rate 77 Respiratory Rate 16 Blood Pressure 125/64 Blood Pressure Mean 84 Blood Pressure Location Right Arm Blood Pressure Position Sitting O2 Sat by Pulse Oximetry 99 98 Oxygen Delivery Method Nasal Cannula Nasal Cannula Oxygen Flow Rate 4 4 Fraction of Inspired Oxygen (FIO2) Height Weight Telemetry Type Telemetry Monitoring Telemetry Heart Rate Telemetry SPO2 EKG MO Interval EKG QRS Interval Telemetry Strip Reading Lab Results Lab Results: Lab Results: Last 24 Hours 09/10/23 09/10/23 09/10/23 09:19 05:36 04:55 WBC 7.41 RBC 3.39 L Hgb 8.2 L Hct 29.4 L MCV 86.7 MCH 24.2 L MCHC 27.9 L RDW Coeff of Iman 22.8 H Plt Count 177 Immature Gran % (Auto) 0.4 Neut % (Auto) 61.2 Lymph % (Auto) 18.2 [place] % (Auto) 13.6 H Eos % (Auto) 5.8 Baso % (Auto) 0.8 Neut # (Auto) 4.5 Lymph # (Auto) 1.4 [place] # (Auto) 1.0 Eos # (Auto) 0.4 Baso # (Auto) 0.1 Immature Gran # (Auto) 0.0 Hypochromasia 1+ Anisocytosis 1+ Puncture Site [employer]rad Base Excess 22.2 H O2 Saturation 89.2 L ABG pH 7.47 H ABG pCO2 63.0 H ABG pO2 53.0 L* ABG HCO3 45.9 H ABG Total CO2 47.8 H Luis[place] Test Pos Hemoglobin 1.1 Oxyhemoglobin 86.4 L Carboxyhemoglobin 2.1 H Total Hemoglobin 9.1 L O2 Delivery Device Bipap FiO2 % 36.0 Sodium 133.8 L Potassium 3.36 L Chloride 91.8 L Carbon Dioxide 42.6 H* Anion Gap 2.76 BUN 8.6 Creatinine 0.87 Estimated GFR (MDRD) 64.00 BUN/Creatinine Ratio 9.88 Glucose 99.0 Calcium 8.61 Iron 28.6 L TIBC 354 % Saturation 8 Total Bilirubin 0.85 AST 33.7 ALT 17.4 Alkaline Phosphatase 91.9 Total Protein 5.83 L Albumin 3.03 L Globulin 2.80 Albumin/Globulin Ratio 1.08 Blood Type Antibody Screen Crossmatch ([facility]) 09/09/23 09/09/23 20:35 09:14 WBC RBC Hgb 8.8 L Hct 31.3 L D MCV MCH MCHC RDW Coeff of Iman Plt Count Immature Gran % (Auto) Neut % (Auto) Lymph % (Auto) [place] % (Auto) Eos % (Auto) Baso % (Auto) Neut # (Auto) Lymph # (Auto) [place] # (Auto) Eos # (Auto) Baso # (Auto) Immature Gran # (Auto) Hypochromasia Anisocytosis Puncture Site Base Excess O2 Saturation ABG pH ABG pCO2 ABG pO2 ABG HCO3 ABG Total CO2 Luisito Test Hemoglobin Oxyhemoglobin Carboxyhemoglobin Total Hemoglobin O2 Delivery Device FiO2 % Sodium Potassium Chloride Carbon Dioxide Anion Gap BUN Creatinine Estimated GFR (MDRD) BUN/Creatinine Ratio Glucose Calcium Iron TIBC % Saturation Total Bilirubin AST ALT Alkaline Phosphatase Total Protein Albumin Globulin Albumin/Globulin Ratio Blood Type O POSITIVE Antibody Screen Negative Crossmatch ([facility]) See Detail Additional Comments Additional Comments: I have independently reviewed and interpreted the labs/EKGs/imaging ordered during this hospital stay. I have reviewed outside records that are available in our EMR that pertain to medical stay including imaging/notes/labs from previous visits. Active Medications Active Medications: Medications Generic Name Dose Route Start Last Admin Trade Name Freq PRN Reason Stop Dose Admin Acetaminophen 650 mg 09/08/23 17:39 09/10/23 10:59 Acetaminophen 325 Mg Tablet PO 650 mg Q4H PRN Administration Mild Pain Albuterol Sulfate 2.5 mg 09/08/23 17:26 Albuterol Sulfate 0.083% Vial.Neb NEB RTQ4H PRN Wheezing Albuterol/Ipratropium 3 ml 09/08/23 18:00 09/10/23 10:26 Ipratropium/Albuterol Vial.Neb NEB 3 ml RTQ4H MANI Administration Amiodarone HCl 200 mg 09/09/23 09:00 09/10/23 08:49 Amiodarone Hcl 200 Mg Tablet PO 200 mg DAILY MANI Administration Apixaban 5 mg 09/09/23 09:25 09/10/23 08:48 Apixaban 5 Mg Tab PO 5 mg BID MANI Administration Ascorbic Acid 500 mg 09/09/23 09:00 09/10/23 08:50 Ascorbic Acid 500 Mg Tablet PO 500 mg DAILY MANI Administration Cholecalciferol 5,000 unit 09/09/23 09:00 09/10/23 08:49 Cholecalciferol (Vitamin D3) 1,000 Unit (25 Mcg) Tablet PO 5,000 unit DAILY MANI Administration Furosemide 40 mg 09/09/23 01:30 09/10/23 08:47 Furosemide Inj 40 Mg/4 Ml Vial IVP 40 mg Q8H MANI Administration Gabapentin 300 mg 09/09/23 09:00 09/10/23 08:47 Gabapentin 300 Mg Capsule PO 300 mg TID MANI Administration Meropenem/Sodium Chloride 1 gm in 50 mls @ 100 mls/hr 09/09/23 13:00 09/10/23 04:28 Merrem 1 Gm/50 Ml Nacl IV 09/11/23 18:59 100 mls/hr Q8HR MANI Administration Insulin Human Regular 0 unit 09/08/23 17:41 09/09/23 17:42 Insulin Regular, Human 100 Unit/Ml (10ml) Vial SUBCUT 3 unit PRN PRN Administration Hyperglycemia Protocol Linezolid 600 mg 09/08/23 21:00 09/10/23 08:48 Linezolid 600 Mg Tablet PO 09/11/23 20:59 600 mg BID MANI Administration Loratadine 10 mg 09/09/23 09:00 09/10/23 08:48 Loratadine 10 Mg Tablet PO 10 mg DAILY MANI Administration Lorazepam 1 mg 09/08/23 18:31 09/08/23 22:00 Lorazepam Inj 2 Mg/Ml Vial IVP 1 mg Q4H PRN Administration Agitation Lovastatin 20 mg 09/09/23 17:00 09/09/23 17:42 Lovastatin 20 Mg Tablet PO 20 mg QPM MANI Administration Magnesium Oxide 400 mg 09/09/23 09:00 09/10/23 08:47 Magnesium Oxide 400 Mg Tablet PO 400 mg BID MANI Administration Ondansetron HCl 4 mg 09/08/23 17:55 09/08/23 18:34 Ondansetron Hcl/Pf 4 Mg/2 Ml Sdv IVP 4 mg Q6H PRN Administration Nausea / Vomiting Oxybutynin Chloride 5 mg 09/09/23 09:00 09/10/23 08:50 Oxybutynin Chloride 5 Mg Tablet PO 5 mg TID MANI Administration Oxycodone HCl 10 mg 09/08/23 21:11 09/10/23 08:58 Oxycodone Hcl 5 Mg Tablet PO 10 mg Q4H PRN Administration Pain Pantoprazole Sodium 40 mg 09/10/23 06:00 09/10/23 05:05 Pantoprazole Sodium 40 Mg Tablet.Dr PO 40 mg QDAC2 MANI Administration Polysaccharide Iron Complex 150 mg 09/10/23 21:00 Iron Polysaccharide Complex 150 Mg Capsule PO BID [facility] Saccharomyces Boulardii 250 mg 09/08/23 21:00 09/10/23 08:49 Saccharomyces Boulardii 250 Mg Capsule PO 250 mg BID MANI Administration Sodium Chloride 1 syr 09/08/23 21:00 09/10/23 05:12 0.9% Sodium Chloride 10 Ml Disp.Syrin IVF 1 syr Q8HR MANI Administration Plan Plan: 1. Acute Hypercapnic Respiratory Failure in setting of NAVEED and CHF exacerbation - Resolved, patient agreeable to wear CPAP at night, will send orders for sleep study 2. Acute Hypercapnic Encephalopathy - Resolved, avoid any additional neurologically altering agents if able 3. CHF Exacerbation - Improving, diuresing well, follows with [facility]; decreasing lasix 40 mg Q12H due to hypotension at times, I&O, daily weight, 1800 mL fluid restriction, echo completed yesterday and showed EF of 67% 4. Cellulitis to LLE - Improving, awaiting wound culture, treating with Merrem 1G Q8H, on zyvox PO for left knee revision - continue 5. Post-op anemia - dropped to 6.9 yesterday, received 2 units of PRBC with 1 dose of lasix between units, improved to 8.8 last night but dropped to 8.3 this am, will discuss with ortho, iron studies completed and mildly low, added replacement 6. 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 Mock on 08/25. Following with Dr. Li for ID. Initially on zyvox, transitioned to doxy per Dr. Li. Cellulitis and concerning areas present after switch. Back on zyvox until follow-up with [facility]. wound care as follows per Dr. Johnson Mock: alcohol and betadine to draining area TID with 4x4 gauze with adherent dressing, if area still draining Dr. Mock will staple area on Wednesday. oxycodone for pain, culture wound 7. Weakness and debility secondary to left TKA revision - holding PT/OT at this time due to above 8. Diabetes Mellitus, type 2 - accuchecks qid with ssi, holding oral medications, ADA diet 9. PAF - continue home medications DVT Prophylaxis: Munir Review Statement Review Statement: I have personally discussed and reviewed the patient's visit/currently labs/imaging/decision making with Dr. Mock, my supervising attending. Greater that 50 minutes spent with patient, 50% of the time spent with this patient was devoted to counseling and coordination of care.
[2023-09-10] MEDS: LASIX IVP SCH (12:00)
[2023-09-10] MEDS: MYLANTA SUSP PO PRN (12:46)
[2023-09-10] MEDS: GLUCAGEN IVP ONE (15:49)
[2023-09-10] MEDS: NIFEREX 150 PO SCH (22:01)
[2023-09-11 06:07] LABS: ABG O2 HGB 93.9 % (95-100); ABG PH 7.46 (7.35-7.45); BEecf 24.6 (-2.0-3.0); COHb 2.2 (0.5-1.5); HCO3 48.4 (21-28); MetHb 0.8 (0-1.5); TCO2 50.5 (19-24); sO2 95.8 % (94-98); tHb 9.4 g/dl (11.7-17.4)
[2023-09-11 06:59] LABS: BASOPHILS % (AUTO) 0.6 % (0.0-3.0); EOSINOPHILS # (AUTO) 0.4 K/ul (0.0-0.7); EOSINOPHILS % (AUTO) 6.5 % (0.0-7.0); HEMATOCRIT 32.3 % (37.0-47.0); IMMATURE GRANULOCYTE % (AUTO) 0.3 % (0.0-5.0); LYMPHOCYTES % (AUTO) 14.1 (10.0-50.0); MEAN CORPUSCULAR HEMOGLOBIN 24.2 pg (27.0-31.0); MEAN CORPUSCULAR HGB CONC 27.9 (31.8-35.4); MEAN CORPUSCULAR VOLUME 86.8 fl (81.0-99.0); MONOCYTES # (AUTO) 0.8 K/uL (0.4-2.0); MONOCYTES % (AUTO) 11.1 (0-10); NEUTROPHILS # (AUTO) 4.5 K/ul (2.0-6.9); NEUTROPHILS % (AUTO) 67.4 % (42.2-75.2); PLATELET COUNT 207 10^3/uL (140-440); RDW COEFFICIENT OF VARIATION 23.5 % (11.6-14.8); RED BLOOD COUNT 3.72 10^6/ul (4.20-5.40); WHITE BLOOD COUNT 6.74 K/ul (4.6-10.2)
[2023-09-11 07:14] LABS: ALANINE AMINOTRANSFERASE 17.9 U/L (0-35); ASPARTATE AMINO TRANSFERASE 35.3 U/L (14-36); BILIRUBIN,TOTAL 1.05 mg/dL (0.2-1.3); BLOOD UREA NITROGEN 9.7 mg/dL (7-17); CALCIUM 8.97 mg/dL (8.4-10.2); CHLORIDE 92.6 mmol/L (98-107); CREATININE 0.76 mg/dL (0.60-1.30); GLUCOSE 98.1 mg/dL (74-106); POTASSIUM 3.75 mmol/L (3.5-5.1); TOTAL PROTEIN 6.36 g/dL (6.3-8.2)
[2023-09-11 07:22] LABS: CARBON DIOXIDE > 40.0 mmol/L (22-30.0)
[2023-09-11] MEDS: PROTONIX IVP SCH (09:50)
--- NOTE | 2023-09-11 09:55 | PCM.PROG ---
Date/Time Seen Date Seen by Provider: 09/11/23 Time Seen by Provider: 09:15 Provider Provider: TYSON BR[facility], [facility] Chief Complaint Chief Complaint: CHF W EXACERBATION,ACUTE HYPOXIC RESP FAILURE Subjective Subjective: Refused cpap last night due to discomfort. Discussed risks of doing this and that is not feasible to continue to refuse. Discussed patient would no longer be swingbed candidate if she refuses to become medically stable. Had episode yesterday of vomiting and difficulty swallowing pills. Discussed that it feels foamy coming up in her mouth at times with epigastric discomfort. Has had esophageal stricture in past and often has to have her esophagus stretched. Takes protonix daily for gerd. Objective Appearance: Positive No Apparent Distress and Alert and Oriented x3 Chest/Lungs: Positive Symmetrical With Equal Breath Sounds and Clear to Auscultation Bilaterally Heart: Positive RRR and Pulses Normal GI/: Positive Soft, Nontender, Bowel Sounds Normal and No Distention Musculoskeletal: Positive Not Examined Neurological: Positive Sensation Intact, Motor intact, Reflexes Intact, Alert and Oriented Additional Findings: Vertical incision to L knee, improved erythema and swelling mediolateral to site, scant drainage present superior to erythematous area that is serosanguineous Improving erythema to LLE Improved edema generalized to BLE, +3-4 to LLE and +2-3 to RLE Vital Signs Vital Signs: Vital Signs: Last 24 Hours 09/10/23 10:00 09/10/23 10:00 09/10/23 13:00 Temperature 98.9 F Temperature Source Temporal Artery Scan Pulse Rate 77 Respiratory Rate 16 Blood Pressure 125/64 Blood Pressure Mean 84 Blood Pressure Location Right Arm Blood Pressure Position Sitting O2 Sat by Pulse Oximetry 99 98 Oxygen Delivery Method Nasal Cannula Nasal Cannula Oxygen Flow Rate 4 4 Weight Telemetry Type Bedside Monitor Telemetry Monitoring Continues Telemetry Heart Rate 83 Telemetry SPO2 EKG NM Interval 0.10 L EKG QRS Interval 0.08 Telemetry Strip Reading SR 09/10/23 14:00 09/10/23 14:00 09/10/23 18:00 Temperature 98.6 F 98.8 F Temperature Source Temporal Artery Scan Temporal Artery Scan Pulse Rate 79 80 Respiratory Rate 20 18 Blood Pressure 112/47 L 125/69 Blood Pressure Mean 68 87 Blood Pressure Location Right Arm Right Arm Blood Pressure Position Sitting Sitting O2 Sat by Pulse Oximetry 92 L 98 98 Oxygen Delivery Method Nasal Cannula Room Air Nasal Cannula Oxygen Flow Rate 4 4 Weight Telemetry Type Telemetry Monitoring Telemetry Heart Rate Telemetry SPO2 EKG NM Interval EKG QRS Interval Telemetry Strip Reading 09/10/23 19:00 09/10/23 20:00 09/10/23 20:00 Temperature Temperature Source Pulse Rate Respiratory Rate Blood Pressure Blood Pressure Mean Blood Pressure Location Blood Pressure Position O2 Sat by Pulse Oximetry Oxygen Delivery Method Nasal Cannula Nasal Cannula Oxygen Flow Rate 4 4 Weight Telemetry Type Bedside Monitor Telemetry Monitoring Telemetry Heart Rate 78 Telemetry SPO2 94 EKG NM Interval 0.19 EKG QRS Interval 0.08 Telemetry Strip Reading sr 09/10/23 21:26 09/10/23 22:00 09/11/23 01:00 Temperature 98.5 F Temperature Source Tympanic Pulse Rate 81 Respiratory Rate 20 Blood Pressure 121/58 L Blood Pressure Mean 79 Blood Pressure Location Right Arm Blood Pressure Position Sitting O2 Sat by Pulse Oximetry 96 96 Oxygen Delivery Method Nasal Cannula Oxygen Flow Rate 4 4 Weight Telemetry Type Bedside Monitor Telemetry Monitoring Telemetry Heart Rate 82 Telemetry SPO2 94 EKG NM Interval 0.17 EKG QRS Interval 0.07 Telemetry Strip Reading sr 09/11/23 01:47 09/11/23 05:17 09/11/23 05:23 Temperature 97.6 F 98.1 F Temperature Source Tympanic Temporal Artery Scan Pulse Rate 79 80 Respiratory Rate 20 18 Blood Pressure 127/65 123/61 Blood Pressure Mean 85 81 Blood Pressure Location Right Arm Right Radial Artery Blood Pressure Position Sitting Sitting O2 Sat by Pulse Oximetry 98 96 95 Oxygen Delivery Method Nasal Cannula Nasal Cannula Nasal Cannula Oxygen Flow Rate 4 4 3 Weight Telemetry Type Telemetry Monitoring Telemetry Heart Rate Telemetry SPO2 EKG NM Interval EKG QRS Interval Telemetry Strip Reading 09/11/23 06:00 09/11/23 07:00 09/11/23 08:00 Temperature Temperature Source Pulse Rate Respiratory Rate 14 Blood Pressure Blood Pressure Mean Blood Pressure Location Blood Pressure Position O2 Sat by Pulse Oximetry Oxygen Delivery Method Nasal Cannula Oxygen Flow Rate 4 Weight 314 lb 2 oz Telemetry Type Bedside Monitor Telemetry Monitoring Continues Telemetry Heart Rate 80 Telemetry SPO2 93 EKG NM Interval 0.14 EKG QRS Interval 0.09 Telemetry Strip Reading NSR Lab Results Lab Results: Lab Results: Last 24 Hours 09/11/23 09/11/23 09/10/23 06:50 05:52 09:19 WBC 6.74 RBC 3.72 L Hgb 9.0 L Hct 32.3 L MCV 86.8 MCH 24.2 L MCHC 27.9 L RDW Coeff of Iman 23.5 H Plt Count 207 Immature Gran % (Auto) 0.3 Neut % (Auto) 67.4 Lymph % (Auto) 14.1 [place] % (Auto) 11.1 H Eos % (Auto) 6.5 Baso % (Auto) 0.6 Neut # (Auto) 4.5 Lymph # (Auto) 1.0 [place] # (Auto) 0.8 Eos # (Auto) 0.4 Baso # (Auto) 0.0 Immature Gran # (Auto) 0.0 Puncture Site Rr Base Excess 24.6 H O2 Saturation 95.8 ABG pH 7.46 H ABG pCO2 68.0 H ABG pO2 76.0 L ABG HCO3 48.4 H ABG Total CO2 50.5 H [place] Test Pos Hemoglobin 0.8 Oxyhemoglobin 93.9 L Carboxyhemoglobin 2.2 H Total Hemoglobin 9.4 L O2 Delivery Device Cannula Oxygen Liter Flow 4.00 Sodium 136.0 Potassium 3.75 Chloride 92.6 L Carbon Dioxide > 40.0 H* Anion Gap 7.26334 BUN 9.7 Creatinine 0.76 Estimated GFR (MDRD) 74.00 BUN/Creatinine Ratio 12.76 Glucose 98.1 Calcium 8.97 Iron 28.6 L TIBC 354 % Saturation 8 Total Bilirubin 1.05 AST 35.3 ALT 17.9 Alkaline Phosphatase 99.0 Total Protein 6.36 Albumin 3.40 L Globulin 2.96 Albumin/Globulin Ratio 1.14 Additional Comments Additional Comments: I have independently reviewed and interpreted the labs/EKGs/imaging ordered during this hospital stay. I have reviewed outside records that are available in our EMR that pertain to medical stay including imaging/notes/labs from previous visits. Active Medications Active Medications: Medications Generic Name Dose Route Start Last Admin Trade Name Freq PRN Reason Stop Dose Admin Acetaminophen 650 mg 09/08/23 17:39 09/10/23 10:59 Acetaminophen 325 Mg Tablet PO 650 mg Q4H PRN Administration Mild Pain Al Hydroxide/Mg Hydroxide 30 ml 09/10/23 12:07 09/10/23 12:46 Mag Hydrox/Al Hydrox/Simeth 30 Ml Cup PO 30 ml BID PRN Administration Heartburn Albuterol Sulfate 2.5 mg 09/08/23 17:26 Albuterol Sulfate 0.083% Vial.Neb NEB RTQ4H PRN Wheezing Albuterol/Ipratropium 3 ml 09/08/23 18:00 09/11/23 05:11 Ipratropium/Albuterol Vial.Neb NEB 3 ml RTQ4H MANI Administration Alprazolam 1 mg 09/11/23 09:28 Alprazolam 0.5 Mg Tablet PO TID PRN Insomnia Amiodarone HCl 200 mg 09/09/23 09:00 09/10/23 08:49 Amiodarone Hcl 200 Mg Tablet PO 200 mg DAILY MANI Administration Apixaban 5 mg 09/09/23 09:25 09/10/23 22:00 Apixaban 5 Mg Tab PO Not Given BID MANI Ascorbic Acid 500 mg 09/09/23 09:00 09/10/23 08:50 Ascorbic Acid 500 Mg Tablet PO 500 mg DAILY MANI Administration Cholecalciferol 5,000 unit 09/09/23 09:00 09/10/23 08:49 Cholecalciferol (Vitamin D3) 1,000 Unit (25 Mcg) Tablet PO 5,000 unit DAILY MANI Administration Furosemide 40 mg 09/10/23 12:05 09/11/23 09:44 Furosemide Inj 40 Mg/4 Ml Vial IVP 40 mg Q12HR MANI Administration Gabapentin 300 mg 09/09/23 09:00 09/10/23 22:01 Gabapentin 300 Mg Capsule PO Not Given TID MANI Meropenem/Sodium Chloride 1 gm in 50 mls @ 100 mls/hr 09/09/23 13:00 09/11/23 06:19 Merrem 1 Gm/50 Ml Nacl IV 09/13/23 12:59 100 mls/hr Q8HR MANI Administration Insulin Human Regular 0 unit 09/08/23 17:41 09/09/23 17:42 Insulin Regular, Human 100 Unit/Ml (10ml) Vial SUBCUT 3 unit PRN PRN Administration Hyperglycemia Protocol Linezolid 600 mg 09/08/23 21:00 09/10/23 22:01 Linezolid 600 Mg Tablet PO 09/13/23 20:59 Not Given BID MANI Loratadine 10 mg 09/09/23 09:00 09/10/23 08:48 Loratadine 10 Mg Tablet PO 10 mg DAILY MANI Administration Lorazepam 1 mg 09/08/23 18:31 09/08/23 22:00 Lorazepam Inj 2 Mg/Ml Vial IVP 1 mg Q4H PRN Administration Agitation Lovastatin 20 mg 09/09/23 17:00 09/10/23 16:26 Lovastatin 20 Mg Tablet PO Not Given QPM MANI Magnesium Oxide 400 mg 09/09/23 09:00 09/10/23 22:00 Magnesium Oxide 400 Mg Tablet PO Not Given BID MANI Metoclopramide HCl 5 mg 09/11/23 09:27 Metoclopramide Hcl 10 Mg/2 Ml IVP Q6H PRN Nausea / Vomiting Ondansetron HCl 4 mg 09/08/23 17:55 09/08/23 18:34 Ondansetron Hcl/Pf 4 Mg/2 Ml Sdv IVP 4 mg Q6H PRN Administration Nausea / Vomiting Oxybutynin Chloride 5 mg 09/09/23 09:00 09/10/23 22:00 Oxybutynin Chloride 5 Mg Tablet PO Not Given TID MANI Oxycodone HCl 10 mg 09/08/23 21:11 09/11/23 07:52 Oxycodone Hcl 5 Mg Tablet PO 10 mg Q4H PRN Administration Pain Pantoprazole Sodium 40 mg 09/10/23 06:00 09/11/23 06:36 Pantoprazole Sodium 40 Mg Tablet.Dr PO Not Given QDAC2 MANI Pantoprazole Sodium 40 mg 09/11/23 09:30 09/11/23 09:50 Pantoprazole Sodium 40 Mg Vial IVP 40 mg BID MANI Administration Polysaccharide Iron Complex 150 mg 09/10/23 21:00 09/10/23 22:01 Iron Polysaccharide Complex 150 Mg Capsule PO Not Given BID MANI Saccharomyces Boulardii 250 mg 09/08/23 21:00 09/10/23 22:00 Saccharomyces Boulardii 250 Mg Capsule PO Not Given BID [facility] Sodium Chloride 1 syr 09/08/23 21:00 09/11/23 06:36 0.9% Sodium Chloride 10 Ml Disp.Syrin IVF 1 syr Q8HR MANI Administration Plan Plan: 1. Acute Hypercapnic Respiratory Failure in setting of NAVEED and CHF exacerbation - CO2 declined this am, patient refused overnight, - now agreeable to wear CPAP at night with sleep aid medications, will send orders for sleep study 2. Acute Hypercapnic Encephalopathy - Resolved, avoid any additional neurologically altering agents if able 3. CHF Exacerbation - Improving, diuresing well, follows with [facility]; decreasing lasix 40 mg Q12H due to hypotension at times, I&O, daily weight, 1800 mL fluid restriction, echo completed yesterday and showed EF of 67% 4. Cellulitis to LLE - Improving, awaiting wound culture, treating with Merrem 1G Q8H, on zyvox PO for left knee revision - continue 5. Post-op anemia - Improved, hbg 9 this am, iron studies completed and mildly l ow, added replacement, monitor 6. 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 Mock on 08/25. Following with Dr. Li for ID. Initially on zyvox, transitioned to doxy per Dr. Li. Cellulitis and concerning areas present after switch. Back on zyvox until follow-up with [facility]. wound care as follows per Dr. Johnson Mock: alcohol and betadine to draining area TID with 4x4 gauze with adherent dressing. oxycodone for pain, wound culture not showing growth at this time - will await final report, Dr. Mock placed 5 jemima to open area yesterday - hold wound care x24 hours per his order 7. Weakness and debility secondary to left TKA revision - holding PT/OT at this time due to above 8. Diabetes Mellitus, type 2 - accuchecks qid with ssi, holding oral medications, ADA diet 9. PAF - continue home medications DVT Prophylaxis: Munir Review Statement Review Statement: I have personally discussed and reviewed the patient's visit/currently labs/imaging/decision making with Dr. Mock, my supervising attending. Greater that 50 minutes spent with patient, 50% of the time spent with this patient was devoted to counseling and coordination of care.
[2023-09-11] MEDS: REGLAN IVP PRN (12:10)
[2023-09-11] MEDS: XANAX PO PRN (21:22)
[2023-09-12 05:04] LABS: ABG O2 HGB 94.3 % (95-100); ABG PH 7.48 (7.35-7.45); BEecf 24.2 (-2.0-3.0); COHb 2.3 (0.5-1.5); HCO3 47.7 (21-28); MetHb 0.7 (0-1.5); TCO2 49.7 (19-24); sO2 96.4 % (94-98); tHb 9.4 g/dl (11.7-17.4)
[2023-09-12 05:15] LABS: BASOPHILS # (AUTO) 0.1 K/uL (0-0.2); BASOPHILS % (AUTO) 0.8 % (0.0-3.0); EOSINOPHILS # (AUTO) 0.4 K/ul (0.0-0.7); EOSINOPHILS % (AUTO) 6.3 % (0.0-7.0); HEMATOCRIT 32.1 % (37.0-47.0); IMMATURE GRANULOCYTE % (AUTO) 0.2 % (0.0-5.0); LYMPHOCYTES # (AUTO) 0.9 K/uL (0.60-3.4); LYMPHOCYTES % (AUTO) 14.2 (10.0-50.0); MEAN CORPUSCULAR HEMOGLOBIN 24.5 pg (27.0-31.0); MEAN CORPUSCULAR VOLUME 87.2 fl (81.0-99.0); MONOCYTES # (AUTO) 0.7 K/uL (0.4-2.0); MONOCYTES % (AUTO) 11.4 (0-10); NEUTROPHILS # (AUTO) 4.1 K/ul (2.0-6.9); NEUTROPHILS % (AUTO) 67.1 % (42.2-75.2); PLATELET COUNT 205 10^3/uL (140-440); RDW COEFFICIENT OF VARIATION 23.4 % (11.6-14.8); RED BLOOD COUNT 3.68 10^6/ul (4.20-5.40); WHITE BLOOD COUNT 6.05 K/ul (4.6-10.2)
[2023-09-12 05:28] LABS: ANISOCYTOSIS 1+ (NOT PRESENT); POIKILOCYTOSIS OCCASIONAL (NOT PRESENT)
[2023-09-12 05:29] LABS: HYPOCHROMASIA 1+ (NOT PRESENT)
[2023-09-12 05:33] LABS: ALANINE AMINOTRANSFERASE 16.6 U/L (0-35); ALBUMIN 3.24 g/dL (3.5-5.0); ALKALINE PHOSPHATASE 98.3 U/L (53-141); ASPARTATE AMINO TRANSFERASE 36.5 U/L (14-36); BILIRUBIN,TOTAL 1.05 mg/dL (0.2-1.3); BLOOD UREA NITROGEN 9.6 mg/dL (7-17); CALCIUM 8.91 mg/dL (8.4-10.2); CHLORIDE 91.8 mmol/L (98-107); CREATININE 0.77 mg/dL (0.60-1.30); POTASSIUM 3.54 mmol/L (3.5-5.1); SODIUM 135.9 mmol/L (134.5-145); TOTAL PROTEIN 6.18 g/dL (6.3-8.2)
[2023-09-12 05:39] LABS: CARBON DIOXIDE 39.8 mmol/L (22-30.0)
[2023-09-12] MEDS ORDERED: BENTYL IM PRN (08:56)
--- NOTE | 2023-09-12 09:05 | PCM.PROG ---
Date/Time Seen Date Seen by Provider: 09/12/23 Time Seen by Provider: 08:45 Provider Provider[facility]YS[facility] BR[facility] Chief Complaint Chief Complaint: CHF W EXACERBATION,ACUTE HYPOXIC RESP FAILURE Subjective Subjective: Wore bipap last night. Still complaining of epigastric discomfort and feels her pills aren't going down. No other events. Redness improved to L leg. Culture negative. Objective Appearance: Positive No Apparent Distress and Alert and Oriented x3 Chest/Lungs: Positive Symmetrical With Equal Breath Sounds, Clear to Auscultation Bilaterally and Good Air Movement all 4 Lung [place] Heart: Positive RRR and Pulses Normal GI/: Positive Soft, Nontender, Bowel Sounds Normal and No Distention Musculoskeletal: Positive Not Examined Neurological: Positive Sensation Intact, Motor intact, Reflexes Intact, Alert and Oriented Additional Findings: Vertical incision to L knee, improved erythema and swelling mediolateral to site, drainage resolved Improving erythema to LLE Improved edema generalized to BLE, +3-4 to LLE and +2-3 to RLE Vital Signs Vital Signs: Vital Signs: Last 24 Hours 09/11/23 10:00 09/11/23 10:00 09/11/23 13:59 Temperature 98.1 F 98.5 F Temperature Source Temporal Artery Scan Temporal Artery Scan Pulse Rate 75 78 Respiratory Rate 20 18 Blood Pressure 141/75 H 121/65 Blood Pressure Mean 97 83 Blood Pressure Location Right Arm Right Arm Blood Pressure Position Supine Sitting O2 Sat by Pulse Oximetry 98 97 98 Oxygen Delivery Method Nasal Cannula Nasal Cannula Nasal Cannula Oxygen Flow Rate 4 4 4 Fraction of Inspired Oxygen (FIO2) Weight Telemetry Type Telemetry Monitoring Telemetry Heart Rate Telemetry SPO2 EKG VA Interval EKG QRS Interval Telemetry Strip Reading 09/11/23 14:00 09/11/23 14:50 09/11/23 17:37 Temperature 98.8 F Temperature Source Temporal Artery Scan Pulse Rate 80 Respiratory Rate 16 Blood Pressure 114/70 Blood Pressure Mean 84 Blood Pressure Location Right Arm Blood Pressure Position Sitting O2 Sat by Pulse Oximetry 97 98 Oxygen Delivery Method Nasal Cannula Nasal Cannula Oxygen Flow Rate 2 4 Fraction of Inspired Oxygen (FIO2) Weight Telemetry Type Bedside Monitor Telemetry Monitoring Telemetry Heart Rate 77 Telemetry SPO2 97 EKG VA Interval 0.18 EKG QRS Interval 0.09 Telemetry Strip Reading NSR 09/11/23 19:00 09/11/23 20:00 09/11/23 20:00 Temperature Temperature Source Pulse Rate Respiratory Rate Blood Pressure Blood Pressure Mean Blood Pressure Location Blood Pressure Position O2 Sat by Pulse Oximetry Oxygen Delivery Method Nasal Cannula Nasal Cannula Oxygen Flow Rate 2 4 Fraction of Inspired Oxygen (FIO2) Weight Telemetry Type Bedside Monitor Telemetry Monitoring Continues Telemetry Heart Rate 79 Telemetry SPO2 94 EKG VA Interval 0.18 EKG QRS Interval 0.07 Telemetry Strip Reading sr 09/11/23 21:17 09/11/23 23:08 09/12/23 01:00 Temperature 98.2 F Temperature Source Temporal Artery Scan Pulse Rate 76 Respiratory Rate 16 Blood Pressure 132/69 Blood Pressure Mean 90 Blood Pressure Location Left Arm Blood Pressure Position Supine O2 Sat by Pulse Oximetry 97 99 Oxygen Delivery Method Nasal Cannula Oxygen Flow Rate 4 Fraction of Inspired Oxygen (FIO2) 36 Weight Telemetry Type Bedside Monitor Telemetry Monitoring Continues Telemetry Heart Rate 78 Telemetry SPO2 96 EKG VA Interval 0.17 EKG QRS Interval 0.07 Telemetry Strip Reading sr 09/12/23 02:00 09/12/23 05:13 09/12/23 05:49 Temperature 98.4 F Temperature Source Temporal Artery Scan Pulse Rate 84 Respiratory Rate 18 Blood Pressure 123/47 L Blood Pressure Mean 72 Blood Pressure Location Left Arm Blood Pressure Position Supine O2 Sat by Pulse Oximetry 94 L Oxygen Delivery Method Nasal Cannula Nasal Cannula Oxygen Flow Rate 4 4 Fraction of Inspired Oxygen (FIO2) 36 Weight Telemetry Type Telemetry Monitoring Telemetry Heart Rate Telemetry SPO2 EKG VA Interval EKG QRS Interval Telemetry Strip Reading 09/12/23 05:49 09/12/23 07:00 09/12/23 08:00 Temperature Temperature Source Pulse Rate Respiratory Rate Blood Pressure Blood Pressure Mean Blood Pressure Location Blood Pressure Position O2 Sat by Pulse Oximetry Oxygen Delivery Method Nasal Cannula Oxygen Flow Rate 4 Fraction of Inspired Oxygen (FIO2) Weight 308 lb 6 oz Telemetry Type Bedside Monitor Telemetry Monitoring Continues Telemetry Heart Rate 78 Telemetry SPO2 95 EKG VA Interval 0.10 L EKG QRS Interval 0.08 Telemetry Strip Reading SR Lab Results Lab Results: Lab Results: Last 24 Hours 09/12/23 09/12/23 05:05 04:55 WBC 6.05 RBC 3.68 L Hgb 9.0 L Hct 32.1 L MCV 87.2 MCH 24.5 L MCHC 28.0 L RDW Coeff of Iman 23.4 H Plt Count 205 Immature Gran % (Auto) 0.2 Neut % (Auto) 67.1 Lymph % (Auto) 14.2 [place] % (Auto) 11.4 H Eos % (Auto) 6.3 Baso % (Auto) 0.8 Neut # (Auto) 4.1 Lymph # (Auto) 0.9 [place] # (Auto) 0.7 Eos # (Auto) 0.4 Baso # (Auto) 0.1 Immature Gran # (Auto) 0.0 Hypochromasia 1+ Poikilocytosis Occasional Anisocytosis 1+ Puncture Site Rr Base Excess 24.2 H O2 Saturation 96.4 ABG pH 7.48 H ABG pCO2 64.0 H ABG pO2 79.0 L ABG HCO3 47.7 H ABG Total CO2 49.7 H [place] Test Pos Hemoglobin 0.7 Oxyhemoglobin 94.3 L Carboxyhemoglobin 2.3 H Total Hemoglobin 9.4 L O2 Delivery Device Bipap FiO2 % 36.0 Sodium 135.9 Potassium 3.54 Chloride 91.8 L Carbon Dioxide 39.8 H Anion Gap 7.84 BUN 9.6 Creatinine 0.77 Estimated GFR (MDRD) 73.00 BUN/Creatinine Ratio 12.46 Glucose 103.0 Calcium 8.91 Total Bilirubin 1.05 AST 36.5 H ALT 16.6 Alkaline Phosphatase 98.3 Total Protein 6.18 L Albumin 3.24 L Globulin 2.94 Albumin/Globulin Ratio 1.10 Additional Comments Additional Comments: I have independently reviewed and interpreted the labs/EKGs/imaging ordered during this hospital stay. I have reviewed outside records that are available in our EMR that pertain to medical stay including imaging/notes/labs from previous visits. Active Medications Active Medications: Medications Generic Name Dose Route Start Last Admin Trade Name Freq PRN Reason Stop Dose Admin Acetaminophen 650 mg 09/08/23 17:39 09/10/23 10:59 Acetaminophen 325 Mg Tablet PO 650 mg Q4H PRN Administration Mild Pain Al Hydroxide/Mg Hydroxide 30 ml 09/10/23 12:07 09/10/23 12:46 Mag Hydrox/Al Hydrox/Simeth 30 Ml Cup PO 30 ml BID PRN Administration Heartburn Albuterol Sulfate 2.5 mg 09/08/23 17:26 Albuterol Sulfate 0.083% Vial.Neb NEB RTQ4H PRN Wheezing Albuterol/Ipratropium 3 ml 09/08/23 18:00 09/12/23 05:51 Ipratropium/Albuterol Vial.Neb NEB 3 ml RTQ4H MANI Administration Alprazolam 1 mg 09/11/23 09:28 09/11/23 21:22 Alprazolam 0.5 Mg Tablet PO 1 mg TID PRN Administration Insomnia Amiodarone HCl 200 mg 09/09/23 09:00 09/11/23 14:09 Amiodarone Hcl 200 Mg Tablet PO 200 mg DAILY MANI Administration Apixaban 5 mg 09/09/23 09:25 09/11/23 21:30 Apixaban 5 Mg Tab PO 5 mg BID MANI Administration Ascorbic Acid 500 mg 09/09/23 09:00 09/11/23 14:01 Ascorbic Acid 500 Mg Tablet PO Not Given DAILY MANI Bumetanide 1 mg 09/13/23 06:00 Bumetanide 1 Mg Tablet PO QDAC2 [facility] Cholecalciferol 5,000 unit 09/09/23 09:00 09/11/23 14:01 Cholecalciferol (Vitamin D3) 1,000 Unit (25 Mcg) Tablet PO Not Given DAILY [facility] Dicyclomine HCl 10 mg 09/12/23 08:56 Dicyclomine Hcl 20 Mg/2 Ml Vial IM QID PRN Nausea / Vomiting Gabapentin 300 mg 09/09/23 09:00 09/11/23 21:42 Gabapentin 300 Mg Capsule PO Not Given TID [facility] Insulin Human Regular 0 unit 09/08/23 17:41 09/09/23 17:42 Insulin Regular, Human 100 Unit/Ml (10ml) Vial SUBCUT 3 unit PRN PRN Administration Hyperglycemia Protocol Linezolid 600 mg 09/08/23 21:00 09/11/23 21:43 Linezolid 600 Mg Tablet PO 09/13/23 20:59 Not Given BID MANI Loratadine 10 mg 09/09/23 09:00 09/11/23 14:05 Loratadine 10 Mg Tablet PO Not Given DAILY MANI Lorazepam 1 mg 09/08/23 18:31 09/08/23 22:00 Lorazepam Inj 2 Mg/Ml Vial IVP 1 mg Q4H PRN Administration Agitation Lovastatin 20 mg 09/09/23 17:00 09/11/23 17:04 Lovastatin 20 Mg Tablet PO Not Given QPM [facility] Magnesium Oxide 400 mg 09/09/23 09:00 09/11/23 21:39 Magnesium Oxide 400 Mg Tablet PO Not Given BID [facility] Metoclopramide HCl 5 mg 09/11/23 09:27 09/11/23 18:28 Metoclopramide Hcl 10 Mg/2 Ml IVP 5 mg Q6H PRN Administration Nausea / Vomiting Ondansetron HCl 4 mg 09/08/23 17:55 09/11/23 21:39 Ondansetron Hcl/Pf 4 Mg/2 Ml Sdv IVP 4 mg Q6H PRN Administration Nausea / Vomiting Oxybutynin Chloride 5 mg 09/09/23 09:00 09/11/23 21:31 Oxybutynin Chloride 5 Mg Tablet PO 5 mg TID [facility] Administration Oxycodone HCl 10 mg 09/08/23 21:11 09/11/23 21:22 Oxycodone Hcl 5 Mg Tablet PO 10 mg Q4H PRN Administration Pain Pantoprazole Sodium 40 mg 09/10/23 06:00 09/11/23 06:36 Pantoprazole Sodium 40 Mg Tablet.Dr PO Not Given QDAC2 [facility] Pantoprazole Sodium 40 mg 09/11/23 09:30 09/12/23 08:58 Pantoprazole Sodium 40 Mg Vial IVP 40 mg BID [facility] Administration Polysaccharide Iron Complex 150 mg 09/10/23 21:00 09/11/23 21:39 Iron Polysaccharide Complex 150 Mg Capsule PO Not Given BID [facility] Saccharomyces Boulardii 250 mg 09/08/23 21:00 09/11/23 21:00 Saccharomyces Boulardii 250 Mg Capsule PO Not Given BID [facility] Sodium Chloride 1 syr 09/08/23 21:00 09/12/23 05:30 0.9% Sodium Chloride 10 Ml Disp.Syrin IVF 1 syr Q8HR [facility] Administration Plan Plan: 1. Acute Hypercapnic Respiratory Failure in setting of NAVEED and CHF exacerbation - Resolved, at baseline - now agreeable to wear CPAP at night with sleep aid medications, will send orders for sleep study 2. Acute Hypercapnic Encephalopathy - Resolved, avoid any additional neurologically altering agents if able 3. CHF Exacerbation - Resolved, diuresing well, follows with [facility]; transition to PO bumex starting tomorrow, I&O, daily weight, 1800 mL fluid restriction, echo completed yesterday and showed EF of 67% 4. Cellulitis to LLE - Improving, wound culture negative, WBC normal, stopped merrem, on zyvox PO for left knee revision - continue 5. Post-op anemia - Improved, hbg 9 this am, iron studies completed and mildly low, added replacement, monitor 6. 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 Mock on 08/25. Following with Dr. Li for ID. Initially on zyvox, transitioned to doxy per Dr. Li. Cellulitis and concerning areas present after switch. Back on zyvox until follow-up with [facility]. wound care as follows per Dr. Johnson Mock: alcohol and betadine to draining area TID with 4x4 gauze with adherent dressing. oxycodone for pain, wound culture showing no growth, stopping abx except zyvox, Dr. Mock placed 5 jemima to open area - hold wound care x24 hours per his order 7. Weakness and debility secondary to left TKA revision - holding PT/OT at this time due to above 8. Diabetes Mellitus, type 2 - accuchecks qid with ssi, holding oral medications, ADA diet 9. PAF - continue home medications 10. GERD - has hx of esophageal stricture and has require stretching in past, has had difficulty swallowing; speech eval tomorrow, has protonix, reglan, zofran, and now bentyl ordered DVT Prophylaxis: Eliquis Review Statement Review Statement: I have personally discussed and reviewed the patient's visit/currently lab s/imaging/decision making with Dr. Mock, my supervising attending. Greater that 50 minutes spent with patient, 50% of the time spent with this patient was devoted to counseling and coordination of care.
[2023-09-12] MEDS: BENTYL IM PRN (09:09)
[2023-09-13 05:09] LABS: BASOPHILS # (AUTO) 0.1 K/uL (0-0.2); BASOPHILS % (AUTO) 0.9 % (0.0-3.0); EOSINOPHILS # (AUTO) 0.6 K/ul (0.0-0.7); HEMATOCRIT 33.2 % (37.0-47.0); IMMATURE GRANULOCYTE % (AUTO) 0.4 % (0.0-5.0); LYMPHOCYTES # (AUTO) 0.9 K/uL (0.60-3.4); LYMPHOCYTES % (AUTO) 16.3 (10.0-50.0); MEAN CORPUSCULAR HEMOGLOBIN 23.8 pg (27.0-31.0); MEAN CORPUSCULAR HGB CONC 27.1 (31.8-35.4); MEAN CORPUSCULAR VOLUME 87.8 fl (81.0-99.0); MONOCYTES # (AUTO) 0.7 K/uL (0.4-2.0); MONOCYTES % (AUTO) 12.6 (0-10); NEUTROPHILS # (AUTO) 3.3 K/ul (2.0-6.9); NEUTROPHILS % (AUTO) 58.8 % (42.2-75.2); PLATELET COUNT 197 10^3/uL (140-440); RDW COEFFICIENT OF VARIATION 23.5 % (11.6-14.8); RED BLOOD COUNT 3.78 10^6/ul (4.20-5.40); WHITE BLOOD COUNT 5.64 K/ul (4.6-10.2)
[2023-09-13 05:26] LABS: ALBUMIN 3.26 g/dL (3.5-5.0); ASPARTATE AMINO TRANSFERASE 35.5 U/L (14-36); BILIRUBIN,TOTAL 1.04 mg/dL (0.2-1.3); BLOOD UREA NITROGEN 10.5 mg/dL (7-17); CALCIUM 9.16 mg/dL (8.4-10.2); CHLORIDE 92.7 mmol/L (98-107); CREATININE 0.8 mg/dL (0.60-1.30); GLUCOSE 95.3 mg/dL (74-106); POTASSIUM 3.54 mmol/L (3.5-5.1); SODIUM 135.1 mmol/L (134.5-145); TOTAL PROTEIN 6.13 g/dL (6.3-8.2)
[2023-09-13 05:36] LABS: CARBON DIOXIDE 35.8 mmol/L (22-30.0)
[2023-09-13] MEDS: BUMEX PO SCH (05:50)
[2023-09-13 09:51] VITALS: RESP 20
--- NOTE | 2023-09-13 13:36 | DCSUM ---
Admission Date Admission Date: 09/08/23 Discharge Date Discharge Date: 09/13/23 Admission Diagnosis Admission Diagnosis: 1. Acute Hypercapnic Respiratory Failure in setting of NAVEED and CHF exacerbation 2. Acute Hypercapnic Encephalopathy - 3. CHF Exacerbation 4. Cellulitis to LLE 5. Post-op anemia Discharge Diagnosis Discharge Diagnosis: 1. Acute Hypercapnic Respiratory Failure in setting of NAVEED and CHF exacerbation - Resolved 2. Acute Hypercapnic Encephalopathy - Resolved 3. CHF Exacerbation - resolved 4. Cellulitis to LLE - resolved 5. Post-op anemia - improved 6. 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 Weakness and debility secondary to left TKA revision -improved 8. Diabetes Mellitus, type 2 9. PAF 10. GERD Hospital Provider Hospital Provider: AND[facility] BAN[facility] Primary Care Physician Primary Care Physician: JOSUE ORTA Summary of History and Physical Summary of History and Physical: 73 yo female admitted to swingbed program on 08/31/23 following a left TKA revision completed by Dr. Mock at [facility] on 08/25. 09/08 patient was complaining of significant pain on ambulation to the left leg. Area at top of incision draining yellow/bloody tinged fluid, red area to the lateral side in the middle of the incision, and left lower leg has continued to become more erythematous. CT scan obtained of area and showed seroma vs hematoma. Patient also became dizzy/lightheaded upon ambulating with nursing staff to [facility] and fell sitting down onto a trash can. No injuries sustained at that time, but patient was found to be somewhat confused and oxygen sat was in the 80s. Once sitting, O2 sat only recovered to 85-86%. O2 was increased from 4L to 6L within minimal improvement to 90%. Patient was lethargic at this time. ABG was obtained and showed PCO2 of 97. Patient was then placed on BiPAP. Patient had similar episode at [facility] and refused to wear BIPAP/CPAP and refused sleep study. Chest x-ray also obtained and revealed pleural effusions and vascular congestion present. Patient has not had a fever or other symptoms. Spoke extensively with Dr. Johnson Mock, orthopedic that performed her surgery, regarding the patient. Recommended specific wound care as discussed in plan below and recommended Merrem 1G to cover cellulitis and any other gram positive organisms that may be causing the issue with the incision site. Reported that drainage is likely due to fat necrosis and he will come see patient to place jemima to the area that is draining on Wednesday if needed. Hold PT/OT until further notice at this time. Hospital Course Subjective: Patient's cellulitis improved with merrem and zyvox. Will continue zyvox upon discharge (pt was initially on zyvox and changed to doxy by Dr. Leahy, however worsened following that change.) Will continue zyvox and probiotics until Dr. Leahy f/u on . Dr. Drea Mock did come and place 5 jemima into area that was draining. He recommended to back off of aggressive therapy for now. Wound care as follows per Dr. Johnson Mock: alcohol and betadine to draining area TID with 4x4 gauze with adherent dressing. Wound culture was negative for growth. Warmness and erythema has resolved. Pain is baseline. Ortho follow up scheduled for 10/04. She also received lasix and was on bipap for a short time. CO2 improved. She was encouraged to wear bipap at night. Pt often noncompliant with this. However she states as she got used to it, it was less bothersome for her. Unable to get coverage for bipap inpatient, will need outpatient sleep study. Case management contacted PCP office to make them aware of urgent referral needed. Patient also complained of difficulty swallowing the last few days. She has hx of strictures with stretching by Dr. Narayan, last time being at least [address] evaluated patient, recommended mechanical soft diet until GI follow up with is 10/11. No drooling, able to swallow saliva. Inconsistent on what she can eat/drink from day to day. On protonix. Discussed crushing her meds if needed. Offered protonix granules but she declines, states she can swallow it fine. Of note she also did require 2U PRBCs. She had been borderline needing transfusion since knee surgery. Hgb has been stable for several days. Iron was low, started on daily supplement. Pt has home O2 and home health. Appearance: Pleasant, No Apparent Distress, Alert and Other (+Obese ) HEENT: MMM CVS: No Murmur Abdomen: Soft, Non-Tender and No Distention Respiratory: No Dyspnea Extremities: Other (+left knee incision intact, no significant warmth or redness noted. Pulses and sensation intact. ) Vital Signs: Most Recent Vital Signs Temperature 97.3 F L 09/13/23 09:50 Temperature Source Tympanic 09/13/23 09:50 Pulse Rate 74 09/13/23 09:50 Respiratory Rate 20 09/13/23 09:50 Blood Pressure 125/69 09/13/23 09:50 Blood Pressure Mean 87 09/13/23 09:50 Blood Pressure Left Arm 114/56 09/08/23 17:15 Blood Pressure Location Right Arm 09/13/23 09:50 Blood Pressure Position Sitting 09/13/23 09:50 O2 Sat by Pulse Oximetry 100 09/13/23 09:50 Oxygen Delivery Method Nasal Cannula 09/13/23 09:50 Oxygen Flow Rate 4 09/13/23 09:50 Fraction of Inspired Oxygen (FIO2) 36 09/13/23 05:34 Height 5 ft 7 in 09/09/23 13:40 Weight 301 lb 6 oz 09/13/23 04:26 Telemetry Type Remote Telemetry 09/13/23 07:00 Telemetry Monitoring Continues 09/13/23 07:00 Telemetry Heart Rate 76 09/13/23 07:00 Telemetry SPO2 97 09/13/23 01:00 EKG ND Interval 0.16 09/13/23 07:00 EKG QRS Interval 0.06 09/13/23 07:00 Telemetry Strip Reading sr 09/13/23 07:00 Imaging: EXAM: CHEST RADIOGRAPH TECHNIQUE: Single frontal chest radiograph. HISTORY: Shortness of breath. COMPARISON: 08/27/2023 FINDINGS: No pulmonary infiltrate is identified. Trace left pleural effusion. No visible pneumothorax. Stable cardiomegaly with interval improvement in the pulmonary venous congestion. Equivocal interstitial edema. No acute displaced rib fractures are identified. IMPRESSION: 1. Cardiomegaly, pulmonary venous congestion, and trace left pleural effusion with equivocal interstitial edema. EXAM: CT LEFT KNEE WITHOUT AND WITH CONTRAST HISTORY: Pain and swelling COMPARISON: Radiographs from 08/25/2023. FINDINGS: Axial CT images of the left knee without contrast and multiplanar reformatted images. Postsurgical changes from left knee arthroplasty with conversion to constrained total knee arthroplasty. There is some limitation secondary to the metallic artifact and some motion artifact. However, within the limitations of the exam, no findings of periprosthetic fracture or hardware loosening. There is contour irregularity at the articular surface of the patella (see sagittal image 87). There is a complex fluid collection in the anterior superficial soft tissues, beginning in the suprapatellar soft tissues and total measuring approximately 21 cm cranial-caudal by 9.6 cm transverse and 1.2 cm in depth. The quadriceps tendon is attenuated but with intact fibers. The patellar tendon is thickened but intact. Moderate left knee joint effusion. Superficial soft tissue edema about the lower thigh and knee. There is prominent superficial soft tissue edema and skin thickening at the medial aspect of the distal thigh. IMPRESSION: Postsurgical changes from left knee arthroplasty and conversion. There is a complex collection in the anterior superficial soft tissues. This could be a postoperative seroma or hematoma. Continued clinical surveillance with follow up imaging as warranted. Within the limitations of the exam, no findings of acute hardware complication. There is a contour irregularity at the articular surface of the patella. Correlate with clinical and surgical history. A patellar fracture is not entirely excludable. The quadriceps tendon is attenuated but intact. There is a moderate left knee joint effusion. Superficial soft tissue edema about the distal thigh. This includes pronounced superficial soft tissue and skin thickening at the medial aspect of the thigh. EXAM: ULTRASOUND OF THE LEFT KNEE SOFT TISSUES. HISTORY: Left knee pain and swelling, status post recent knee surgery. CT of the left knee from earlier same date showed a 9.6 cm complex collection in the anterior superficial soft tissues. TECHNIQUE: Limited sonography of the left knee soft tissues was performed. Images were obtained and stored in a permanent archive. COMPARISON: Correlation is made with CT of the left knee from earlier same date. FINDINGS: Diffuse soft tissue swelling. Diffuse induration of the subcutaneous fat. Irregular hypoechoic region in subcutaneous fat deep to the anterior incision, partially obscured by overlying bandage material and soft tissue. Doppler interrogation shows no internal vascularity or active bleeding. Small regions of adjacent hypervascularity. The hypoechoic region measures 2.6 x 1.9 cm cross section. IMPRESSION: 1. Diffuse soft tissue swelling and induration of the subcutaneous fat, probably postsurgical in nature. Cellulitis cannot be excluded. 2. Irregular hypoechoic region of subcutaneous fat deep to the anterior inc ision, partially obscured by overlying bandage material and soft tissue, but measuring at least 2.6 cm. Might represent postoperative hematoma or seroma. Abscess cannot be excluded. Lab Results Last 24 Hours: 09/13/23 04:58 WBC 5.64 RBC 3.78 L Hgb 9.0 L Hct 33.2 L MCV 87.8 MCH 23.8 L MCHC 27.1 L RDW Coeff of Iman 23.5 H Plt Count 197 Immature Gran % (Auto) 0.4 Neut % (Auto) 58.8 Lymph % (Auto) 16.3 Peach % (Auto) 12.6 H Eos % (Auto) 11.0 H Baso % (Auto) 0.9 Neut # (Auto) 3.3 Lymph # (Auto) 0.9 Peach # (Auto) 0.7 Eos # (Auto) 0.6 Baso # (Auto) 0.1 Immature Gran # (Auto) 0.0 Sodium 135.1 Potassium 3.54 Chloride 92.7 L Carbon Dioxide 35.8 H Anion Gap 10.14 BUN 10.5 Creatinine 0.80 Estimated GFR (MDRD) 70.00 BUN/Creatinine Ratio 13.12 Glucose 95.3 Calcium 9.16 Total Bilirubin 1.04 AST 35.5 ALT 16.0 Alkaline Phosphatase 99.0 Total Protein 6.13 L Albumin 3.26 L Globulin 2.87 Albumin/Globulin Ratio 1.13 Discharge Instructions Discharge Planning: Discharge Planning > [address] Aishwarya Mock. Discharge Medications: Medications at Discharge (Home Meds & RX) amiodarone 200 mg tablet 200 mg PO DAILY 08/31/23 ascorbic acid (vitamin C) 500 mg tablet,extended release (C Complex) 500 mg PO DAILY 08/31/23 bumetanide 1 mg tablet 1 mg PO DAILY 08/31/23 cholecalciferol (vitamin D3) 125 mcg (5,000 unit) tablet (Vitamin D3) 125 mcg PO DAILY 08/31/23 fexofenadine 180 mg tablet (Arlette Allergy) 180 mg PO DAILY 08/31/23 gabapentin 300 mg capsule 300 mg PO TID 08/31/23 glimepiride 1 mg tablet 1 mg PO QAM 08/31/23 linezolid 600 mg tablet (Zyvox) 600 mg PO BID 08/31/23 lovastatin 20 mg tablet 20 mg PO QPM 08/31/23 magnesium oxide 400 mg PO BID 08/31/23 ondansetron 8 mg disintegrating tablet 4 mg PO Q8H PRN nausea and vomiting 08/31/23 oxybutynin chloride 5 mg tablet 5 mg PO TID 08/31/23 oxycodone 10 mg tablet 10 mg PO Q4H PRN pain 08/31/23 pantoprazole 40 mg tablet,delayed release 40 mg PO QAM 08/31/23 rivaroxaban 10 mg tablet (Xarelto) 10 mg PO DAILY 08/31/23 triamcinolone acetonide 55 mcg nasal spray aerosol (Nasacort) 2 spray intranasal DAILY 08/31/23 Discharge Plan Discharge Discharge Orders: Discharge Patient (ONCE); Ordered 09/13/23 Ordered By: ANDRE BANKS Activity Restrictions/Additional Instructions: DISCHARGE TO HOME WITH HOME HEALTH- [facility] DIET: MECHANICAL SOFT ACTIVITY: PT/OT, TOLERATED, WBAT LEFT F/U WITH ORTHO, INFECTIOUS DISEASE, PCP SLEEP STUDY REFERRAL RECOMMENDED EDIS FOR HYPERCAPNIA TAKE ANTIBIOTICS UNTIL FOLLOW UP WITH DR. LEAHY. Patient Disposition: HOME WITH FAMILY CARE Prescriptions: New Saccharomyces boulardii [Florastor] 250 mg Capsule 250 mg PO BID Qty: 60 0RF Eliquis 5 mg Tablet 5 mg PO BID Qty: 1 0RF ferrous sulfate 325 mg (65 mg iron) tablet 325 mg PO DAILY Qty: 30 0RF Continued linezolid [Zyvox] 600 mg tablet 600 mg PO BID Rx Instructions: for 14 days ondansetron 8 mg tablet,disintegrating 4 mg PO Q8H PRN (Reason: nausea and vomiting) Rx Instructions: 1st dose 1-2 hr before radiation oxycodone 10 mg tablet 10 mg PO Q4H PRN (Reason: pain) amiodarone 200 mg tablet 200 mg PO DAILY bumetanide 1 mg tablet 1 mg PO DAILY fexofenadine [Arlette Allergy] 180 mg tablet 180 mg PO DAILY gabapentin 300 mg capsule 300 mg PO TID glimepiride 1 mg tablet 1 mg PO QAM lovastatin 20 mg tablet 20 mg PO QPM magnesium oxide 400 mg magnesium capsule 400 mg PO BID oxybutynin chloride 5 mg tablet 5 mg PO TID pantoprazole 40 mg tablet,delayed release (DR/EC) 40 mg PO QAM triamcinolone acetonide [Nasacort] 55 mcg aerosol,spray 2 spray intranasal DAILY Rx Instructions: administer into each nostril ascorbic acid (vitamin C) [C Complex] 500 mg tablet extended release 500 mg PO DAILY cholecalciferol (vitamin D3) [Vitamin D3] 125 mcg (5,000 unit) tablet 125 mcg PO DAILY Discontinued Xarelto 10 mg tablet 10 mg PO DAILY Did you review [place] [employer] for ALL controlled substances?: Yes Discussed opioids are addictive and Narcan is available by prescription or from pharmacy.: Yes Condition: Stable Referrals: MATIAS LUCIO [REFERRING] - 10/05/23 3:00 pm (ORTHO FOLLOW UP WITH DR[facility]) ARIELA LEAHY [REFERRING] - 09/23/23 10:15 am PHILLY NARAYAN [REFERRING] - 10/12/23 2:00 pm JOSUE ORTA MD [Primary Care Provider] - 09/20/23 11:15 am
[2023-09-13 13:42] VITALS: BP 121/70; PULSE 78; TEMP 98.3
== END 2023-09-13 16:00 | disposition home or self-care (01) | DRG 189 ==
LOC: MEDSURG B 17:08
PROVIDERS: ADMIT Hospitalist; ATTEND Physician Assistant